=== PATIENT | female | born 1970 | race American Indian/Alaskan Native ===

== ENCOUNTER 2017-09-12 17:51 | Emergency (ER) | payer MEDICAID, OTHER ==
[2017-09-12] MEDS ORDERED: Cyclobenzaprine 10 MG Tab PO ONE (19:40)
== END 2017-09-12 19:48 ==
LOC: DL.ED 17:51
DX: Z53.21 Procedure and treatment not carried out due to patient leaving prior to being seen by health care provider (principal)

== ENCOUNTER 2017-09-13 16:04 | Emergency (ER) | payer MEDICAID, OTHER ==
--- NOTE | 2017-09-13 16:47 | EDM.PDOC ---
ED HPI GENERAL MEDICAL PROBLEM - General Chief Complaint: Upper Extremity Injury/Pain Stated Complaint: SEVERE SHOULDER PAIN, [id number] Time Seen by Provider: 09/13/17 16:47 Source of Information: Reports: Patient, RN, RN Notes Reviewed History Limitations: Reports: No Limitations - History of Present Illness INITIAL COMMENTS - FREE TEXT/NARRATIVE: C/O flare up of left shoulder pain since falling 2 days ago. Pt raised her arm to brush her hair after the fall and felt a tearing sensation. The pain radiates to the left shoulder blade and down the outer side of the left arm to the inferior deltoid region. Denies neck pain, numbness or tingling. 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 - Related Data Allergies Allergy/AdvReac Type Severity Reaction Status Date / Time ketorolac [From Toradol] Allergy Cannot Verified 09/12/17 19:31 Remember Penicillins Allergy Cannot Verified 09/12/17 19:31 Remember Home Meds: Home Meds ALPRAZolam [Xanax] 5 mg PO DAILY 09/12/17 [History] Lisinopril [Prinivil] 10 mg PO DAILY 09/12/17 [History] Mirtazapine 30 mg PO DAILY 09/12/17 [History] Prazosin HCl [Prazosin] 5 mg PO DAILY 09/12/17 [History] Past Medical History Musculoskeletal History: Reports: Other (See Below) (left rotator cuff injury/ tear) - Past Surgical History Musculoskeletal Surgical History: Reports: Shoulder Surgery Social & Family History - Family History Family Medical History: Noncontributory - Tobacco Use Smoking Status *Q: Never Smoker Second Hand Smoke Exposure: No - Caffeine Use Caffeine Use: Reports: None - Recreational Drug Use Recreational Drug Use: No - Living Situation & Occupation Living situation: Reports: with Family Review of Systems - Review of Systems Review Of Systems: ROS reveals no pertinent complaints other than HPI. ED EXAM, GENERAL - Physical Exam Exam: See Below Exam Limited By: No Limitations General Appearance: Alert, WD/WN, No Apparent Distress Head: Atraumatic, Normocephalic Neck: Normal Inspection, Supple, Non-Tender, Full Range of Motion Respiratory/Chest: No Respiratory Distress, Lungs Clear, Normal Breath Sounds, No Accessory Muscle Use, Chest Non-Tender Cardiovascular: Normal Peripheral Pulses Back Exam: Normal Inspection Extremities: Normal Capillary Refill, Arm Pain (at left generalized shoulder), Limited Range of Motion (left shoulder). No: Joint Swelling, Increased Warmth, Redness Neurological: Alert, Oriented, No Motor/Sensory Deficits Psychiatric: Normal Affect, Normal Mood Skin Exam: Warm, Dry, Intact, Normal Color, No Rash Course - Vital Signs Last Recorded V/S: Last Vital Signs Temp 36.9 C 09/13/17 16:38 Pulse 85 09/13/17 16:38 Resp 16 09/13/17 16:38 BP 143/76 H 09/13/17 16:38 Pulse Ox 100 09/13/17 16:38 - Orders/Labs/Meds Orders: Active Orders 24 hr Category Date Time Status Shoulder Comp Lt [CR] Urgent Exams 09/13/17 16:46 Taken Acetaminophen/HYDROcodone [[place] 325-10 MG] Med 09/13/17 17:17 Once 1 tab PO ONETIME ONE Medication Orders Hydrocodone Bitart/Acetaminophen ([place] 325-10 Mg) 1 tab PO ONETIME ONE Stop: 09/13/17 17:18 Meds: Medications Generic Name Dose Route Start Last Admin Trade Name Freq PRN Reason Stop Dose Admin Hydrocodone Bitart/Acetaminophen 1 tab 09/13/17 17:17 [place] 325-10 Mg PO 09/13/17 17:18 ONETIME ONE - Radiology Interpretation Free Text/Narrative:: Xray left shoulder: no fx or dislocation, calcific tendonosis; per Rad. report. Departure - Departure Time of Disposition: 17:25 Disposition: Home, Self-Care 01 Condition: Good Clinical Impression: Calcific tendonitis of left shoulder Injury of left rotator cuff Qualifiers: Encounter type: initial encounter Qualified Code(s): S46.002A - Unspecified injury of muscle(s) and tendon(s) of the rotator cuff of left shoulder, initial encounter - Discharge Information Instructions: Rotator Cuff Injury, Rotator Cuff Tendinitis Forms: ED Department Discharge Additional Instructions: Rest and apply ice packs to left shoulder as needed to reduce pain and inflammation. Light activity as tolerated. No overhead reaching or repetitive movement of the left shoulder. Rx: [place] 5mg/325mg *Do not drive while under the influence of this medication. Follow up in clinic next week for recheck. - My Orders Last 24 Hours: My Active Orders 09/13/17 16:46 Shoulder Comp Lt [CR] Urgent 09/13/17 17:17 Acetaminophen/HYDROcodone [[place] 325-10 MG] 1 tab PO ONETIME ONE - Assessment/Plan Last 24 Hours: My Active Orders 09/13/17 16:46 Shoulder Comp Lt [CR] Urgent 09/13/17 17:17 Acetaminophen/HYDROcodone [[place] 325-10 MG] 1 tab PO ONETIME ONE
[2017-09-13] MEDS ORDERED: Acetaminophen/HYDROcodone 325-10 MG Tab PO ONE (17:17)
== END 2017-09-13 17:40 | disposition home or self-care (01) ==
LOC: DL.ED 16:04
DX: S46.002A Unspecified injury of muscle(s) and tendon(s) of the rotator cuff of left shoulder, initial encounter (principal); M75.32 Calcific tendinitis of left shoulder; Z88.6 Allergy status to analgesic agent; Z88.0 Allergy status to penicillin; Z79.899 Other long term (current) drug therapy; W19.XXXA Unspecified fall, initial encounter
CPT/HCPCS: 73030; 99283; A9270

== ENCOUNTER 2018-01-28 16:21 | Emergency (ER) | payer MEDICAID, OTHER ==
[2018-01-28] MEDS ORDERED: Ketorolac 30 MG/ML SDV IM ONE (18:39)
--- NOTE | 2018-01-28 18:39 | EDM.PDOC ---
ED HPI GENERAL MEDICAL PROBLEM - General Chief Complaint: Upper Extremity Injury/Pain Stated Complaint: fell on shoulder 01/28/18 Time Seen by Provider: 01/28/18 17:30 Source of Information: Reports: Patient, RN, RN Notes Reviewed History Limitations: Reports: No Limitations - History of Present Illness INITIAL COMMENTS - FREE TEXT/NARRATIVE: Patient presents to the ER with c/o left shoulder pain. Patient states she has a history of problems with this shoulder having had surgery on it in the past and needing further surgeries. Patient states today she was hiking with her children when she stumbled and fell injuring the left shoulder again. Patient rates the pain 10/10. She denies numbness and tingling in the left hand and states she is able to make a fist with the left hand, but left arm has decreased ROM. Onset: Today, Sudden Duration: Constant Location: Reports: Upper Extremity, Left Quality: Reports: Ache, Throbbing Severity: Moderate Improves with: Reports: None Worsens with: Reports: None Treatments ORE SAMPLER: Reports: Cold Therapy Left Shoulder Pain Score (Numeric/FACES): 8 - Related Data Allergies Allergy/AdvReac Type Severity Reaction Status Date / Time ketorolac [From Toradol] Allergy Cannot Verified 01/28/18 16:36 Remember Penicillins Allergy Cannot Verified 01/28/18 16:36 Remember Home Meds: Home Meds ALPRAZolam [Xanax] 5 mg PO DAILY 09/12/17 [History] Lisinopril [Prinivil] 10 mg PO DAILY 09/12/17 [History] Mirtazapine 30 mg PO DAILY 09/12/17 [History] Prazosin HCl [Prazosin] 5 mg PO DAILY 09/12/17 [History] Past Medical History HEENT History: Reports: Impaired Vision Cardiovascular History: Reports: Hypertension Respiratory History: Reports: Other (See Below) Other Respiratory History: pleursy in 2013 Genitourinary History: Reports: None 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 Musculoskeletal History: Reports: Other (See Below) Other Musculoskeletal History: chronic left shoulder pain Neurological History: Reports: Other (See Below) Other Neuro History: hx traumatic brain injury Psychiatric History: Reports: Anxiety, Depression, PTSD Endocrine/Metabolic History: Reports: None Hematologic History: Reports: None Immunologic History: Reports: None Oncologic (Cancer) History: Reports: None Dermatologic History: Reports: None - Infectious Disease History Infectious Disease History: Reports: None - Past Surgical History Head Surgeries/Procedures: Reports: None GI Surgical History: Reports: Other (See Below) Other GI Surgeries/Procedures: spleen, gallbladder removed Musculoskeletal Surgical History: Reports: Knee Replacement, Shoulder Surgery Social & Family History - Family History Family Medical History: Noncontributory - Tobacco Use Smoking Status *Q: Current Every Day Smoker Years of Tobacco use: 10 Packs/Tins Daily: 0.2 - Caffeine Use Caffeine Use: Reports: Coffee, Soda, Tea - Recreational Drug Use Recreational Drug Use: Yes Drug Use in Last 12 Months: Yes Recreational Drug Type: Reports: Marijuana/Hashish - Living Situation & Occupation Living situation: Reports: with Family Review of Systems - Review of Systems Review Of Systems: ROS reveals no pertinent complaints other than HPI. ED EXAM, GENERAL - Physical Exam Exam: See Below Exam Limited By: No Limitations General Appearance: Alert, WD/WN, No Apparent Distress Eye Exam: Bilateral Eye: EOMI, Normal Inspection Ears: Normal External Exam, Hearing Grossly Normal Nose: Normal Inspection Throat/Mouth: Normal Inspection, Normal Voice, No Airway Compromise Head: Atraumatic, Normocephalic Neck: Normal Inspection, Supple, Non-Tender, Full Range of Motion Respiratory/Chest: No Respiratory Distress, Lungs Clear, Normal Breath Sounds, No Accessory Muscle Use, Chest Non-Tender Cardiovascular: Normal Peripheral Pulses, Regular Rate, Rhythm, No Edema, No Gallop, No JVD, No Murmur, No Rub Peripheral Pulses: 2+: Radial (L), Radial (R) GI/Abdominal: Normal Bowel Sounds, Soft, Non-Tender (Female) Exam: Deferred Rectal (Female) Exam: Deferred Back Exam: Normal Inspection, Full Range of Motion, NT Extremities: Normal Inspection, Limited Range of Motion (left shoulder) Neurological: Alert, Oriented, CN II-XII Intact, Normal Cognition, Normal Gait, Normal Reflexes, No Motor/Sensory Deficits Psychiatric: Normal Affect, Normal Mood Skin Exam: Warm, Dry, Intact, Normal Color, No Rash Lymphatic: No Adenopathy Course - Vital Signs Last Recorded V/S: Last Vital Signs Temp 97.6 F 01/28/18 16:26 Pulse 129 H 01/28/18 16:26 Resp 18 01/28/18 16:26 BP 131/85 01/28/18 16:26 Pulse Ox 100 01/28/18 16:26 - Orders/Labs/Meds Meds: Medications Discontinued Medications Generic Name Dose Route Start Last Admin Trade Name Daniel PRN Reason Stop Dose Admin Hydrocodone Bitart/Acetaminophen 1 tab 01/28/18 18:46 01/28/18 18:50 [place] 325-5 Mg PO 01/28/18 18:47 1 tab ONETIME ONE Administration Ketorolac Tromethamine 60 mg 01/28/18 18:39 01/28/18 18:50 Toradol IM 01/28/18 18:40 Not Given ONETIME ONE - Radiology Interpretation Free Text/Narrative:: Left shoulder complete: No acute findings See rad report Departure - Departure Time of Disposition: 18:38 Disposition: Home, Self-Care 01 Condition: Fair Clinical Impression: Sprain of shoulder Qualifiers: Encounter type: initial encounter Shoulder sprain type: unspecified sprain Laterality: left Qualified Code(s): S43.402A - Unspecified sprain of left shoulder joint, initial encounter - Discharge Information Instructions: Shoulder Pain, [id number] Forms: ED Department Discharge Additional Instructions: May use Tylenol and/or ibuprofen for pain Follow up with your primary care facility
[2018-01-28] MEDS ORDERED: Acetaminophen/HYDROcodone 325-5 MG Tab PO ONE (18:46)
== END 2018-01-28 18:53 | disposition home or self-care (01) ==
LOC: DL.ED 16:21
DX: S43.402A Unspecified sprain of left shoulder joint, initial encounter (principal); I10 Essential (primary) hypertension; F17.210 Nicotine dependence, cigarettes, uncomplicated; Z88.6 Allergy status to analgesic agent; Z88.0 Allergy status to penicillin; Z79.899 Other long term (current) drug therapy; X58.XXXA Exposure to other specified factors, initial encounter
CPT/HCPCS: 73030; 99283; A9270

== ENCOUNTER 2018-03-26 15:19 | Emergency (ER) | payer MEDICAID ==
--- NOTE | 2018-03-26 15:31 | EDM.PDOC ---
ED HPI GENERAL MEDICAL PROBLEM - General Chief Complaint: Upper Extremity Injury/Pain Stated Complaint: [id number] TEAR IN LEFT SHOULDER Time Seen by Provider: 03/26/18 15:25 Source of Information: Reports: Patient, Old Records, RN, RN Notes Reviewed History Limitations: Reports: No Limitations - History of Present Illness INITIAL COMMENTS - FREE TEXT/NARRATIVE: Pt presents to ER from home with c/o chronic left shoulder pain with Hx of rotator cuff tear which she states "needs surgery" but she had moved and can't get into an orthopedic surgeon for several weeks. Pt had been taking hydrocodone for pain, but recently ran out. She denies any new or recent injury. Pt states the pain has been getting worse for no apparent reason, so she came to the emergency department. 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(s) Left Shoulder Pain Score (Numeric/FACES): 9 - Related Data Allergies Allergy/AdvReac Type Severity Reaction Status Date / Time ketorolac [From Toradol] Allergy Cannot Verified 03/26/18 15:26 Remember Penicillins Allergy Cannot Verified 03/26/18 15:26 Remember Home Meds: Home Meds Lisinopril [Prinivil] 10 mg PO DAILY 09/12/17 [History] Mirtazapine 30 mg PO DAILY 09/12/17 [History] Prazosin HCl [Prazosin] 5 mg PO DAILY 09/12/17 [History] Cholecalciferol (Vitamin D3) [Vitamin D3] 1,000 unit PO DAILY 03/26/18 [History] Multivitamin [Multivitamins] 1 cap PO DAILY 03/26/18 [History] Past Medical History HEENT History: Reports: Impaired Vision Cardiovascular History: Reports: Hypertension Respiratory History: Reports: Other (See Below) Other Respiratory History: pleursy in 2013 Genitourinary History: Reports: None 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 Musculoskeletal History: Reports: Other (See Below) Other Musculoskeletal History: chronic left shoulder pain Neurological History: Reports: Other (See Below) Other Neuro History: hx traumatic brain injury Psychiatric History: Reports: Anxiety, Depression, PTSD Endocrine/Metabolic History: Reports: Obesity/BMI 30+ Hematologic History: Reports: None Immunologic History: Reports: None Oncologic (Cancer) History: Reports: None Dermatologic History: Reports: None - Infectious Disease History Infectious Disease History: Reports: None - Past Surgical History Head Surgeries/Procedures: Reports: None GI Surgical History: Reports: Other (See Below) Other GI Surgeries/Procedures: spleen, gallbladder removed Musculoskeletal Surgical History: Reports: Knee Replacement, Shoulder Surgery Social & Family History - Family History Family Medical History: Noncontributory - Caffeine Use Caffeine Use: Reports: Coffee, Soda, Tea - Living Situation & Occupation Living situation: Reports: with Family Review of Systems - Review of Systems Review Of Systems: ROS reveals no pertinent complaints other than HPI. ED EXAM, GENERAL - Physical Exam Exam: See Below Exam Limited By: No Limitations General Appearance: Alert, WD/WN, No Apparent Distress Head: Atraumatic, Normocephalic Neck: Normal Inspection, Supple, Non-Tender, Full Range of Motion Respiratory/Chest: No Respiratory Distress Peripheral Pulses: 3+: Radial (L), Radial (R) Extremities: Arm Pain (left shoulder with gen. tenderness, no visible bruising, swelling, or deformity), Limited Range of Motion (left shoulder due to pain). No: Joint Swelling, Increased Warmth, Pallor, Redness Neurological: Alert, Oriented, No Motor/Sensory Deficits Psychiatric: Normal Affect, Normal Mood Skin Exam: Warm, Dry, Intact, Normal Color, No Rash Course - Vital Signs Last Recorded V/S: Last Vital Signs Temp 37.2 C 03/26/18 15:41 Pulse 108 H 03/26/18 15:41 Resp 18 03/26/18 15:41 BP 139/78 03/26/18 15:41 Pulse Ox 99 03/26/18 15:41 - Orders/Labs/Meds Orders: Active Orders 24 hr Category Date Time Status Acetaminophen/HYDROcodone [[place] 325-10 MG] Med 03/26/18 15:43 Once 1 tab PO ONETIME ONE - Re-Assessments/Exams Free Text/Narrative Re-Assessment/Exam: 03/26/18 15:44 Pt presents with a chronic and stable left shoulder problem, and a pending orthopedic appt. I see no indication for imaging or further evaluation at this time. I declined her request for hydrocodone refill. Departure - Departure Time of Disposition: 15:45 Disposition: Home, Self-Care 01 Condition: Good Clinical Impression: Chronic left shoulder pain - Discharge Information Instructions: Shoulder Pain Forms: ED Department Discharge Additional Instructions: Rx: Cyclobenzaprine 10mg *Do not drive while under the influence of this medication. Follow up in clinic with your primary care for medication management. Follow up with orthopedic surgeon at the first available appointment. - My Orders Last 24 Hours: My Active Orders 03/26/18 15:43 Acetaminophen/HYDROcodone [[place] 325-10 MG] 1 tab PO ONETIME ONE - Assessment/Plan Last 24 Hours: My Active Orders 03/26/18 15:43 Acetaminophen/HYDROcodone [[place] 325-10 MG] 1 tab PO ONETIME ONE
[2018-03-26] MEDS ORDERED: Acetaminophen/HYDROcodone 325-10 MG Tab PO ONE (15:43)
== END 2018-03-26 15:55 | disposition home or self-care (01) ==
LOC: DL.ED 15:19
DX: G89.29 Other chronic pain (principal); M25.512 Pain in left shoulder; I10 Essential (primary) hypertension; F41.9 Anxiety disorder, unspecified; F32.9 Major depressive disorder, single episode, unspecified; Z79.899 Other long term (current) drug therapy; Z88.0 Allergy status to penicillin; Z88.5 Allergy status to narcotic agent; Z98.890 Other specified postprocedural states
CPT/HCPCS: 99282; A9270

== ENCOUNTER 2018-05-13 05:37 | Emergency (ER) | payer MEDICAID ==
[2018-05-13] MEDS ORDERED: Albuterol/Ipratropium 3.0-0.5 MG/3 ML Neb Soln NEB ONE (05:43)
[2018-05-13] MEDS ORDERED: Budesonide 0.5 MG/2 ML Neb Susp NEB ONE (05:43)
[2018-05-13] MEDS ORDERED: methylPREDNISolone Sodium Succinate 125 MG/2 ML SDV IVPUSH ONE (05:43)
[2018-05-13] MEDS ORDERED: Sodium Chloride 0.9% 10 ML Syringe FLUSH PRN (05:43)
[2018-05-13] MEDS ORDERED: Montelukast 10 MG Tab PO ONE (05:44)
[2018-05-13] MEDS ORDERED: Budesonide 0.5 MG/2 ML Neb Susp ONE (05:55)
--- NOTE | 2018-05-13 05:55 | EDM.PDOC ---
ED HPI GENERAL MEDICAL PROBLEM - General Chief Complaint: Respiratory Problem Stated Complaint: IN BY AMBULANCE Time Seen by Provider: 05/13/18 05:40 Source of Information: Reports: Patient, EMS History Limitations: Reports: No Limitations - History of Present Illness INITIAL COMMENTS - FREE TEXT/NARRATIVE: Patient comes emergency department today with complaints of a cough and wheezing. Over the past week she has had increasing cough and congestion. She complains of a fever of 101 at home as well as chills. Her cough is dry hacking in nature. She does have a history of asthma for which she has been using her inhalers without much improvement. She does complain of shortness of breath a hoarse voice as well as tightness in her chest. Sometimes she starts coughing so much that she vomits. She denies any nausea. No abdominal pain. No hematuria dysuria or urinary frequency.She was to be seen in the clinic this morning although she didn't feel that she could make it with her coughing. Chest Pain Score (Numeric/FACES): 9 - Related Data Allergies Allergy/AdvReac Type Severity Reaction Status Date / Time ketorolac [From Toradol] Allergy Cannot Verified 05/13/18 05:46 Remember Penicillins Allergy Cannot Verified 05/13/18 05:46 Remember Home Meds: Home Meds Lisinopril [Prinivil] 10 mg PO DAILY 09/12/17 [History] Mirtazapine 30 mg PO DAILY 09/12/17 [History] Prazosin HCl [Prazosin] 5 mg PO DAILY 09/12/17 [History] Cholecalciferol (Vitamin D3) [Vitamin D3] 1,000 unit PO DAILY 03/26/18 [History] Multivitamin [Multivitamins] 1 cap PO DAILY 03/26/18 [History] Albuterol [Ventolin HFA] 2 puff INH Q4HRRT PRN 05/13/18 [History] Gabapentin [Neurontin] 100 mg PO TID 05/13/18 [History] Past Medical History HEENT History: Reports: Impaired Vision Cardiovascular History: Reports: Hypertension Respiratory History: Reports: Asthma, Other (See Below) Other Respiratory History: pleursy in 2013 Genitourinary History: Reports: None 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 Musculoskeletal History: Reports: Other (See Below) Other Musculoskeletal History: chronic left shoulder pain Neurological History: Reports: Other (See Below) Other Neuro History: hx traumatic brain injury Psychiatric History: Reports: Anxiety, Depression, PTSD Endocrine/Metabolic History: Reports: Obesity/BMI 30+ Hematologic History: Reports: None Immunologic History: Reports: None Oncologic (Cancer) History: Reports: None Dermatologic History: Reports: None - Infectious Disease History Infectious Disease History: Reports: None - Past Surgical History Head Surgeries/Procedures: Reports: None GI Surgical History: Reports: Other (See Below) Other GI Surgeries/Procedures: spleen, gallbladder removed Musculoskeletal Surgical History: Reports: Knee Replacement, Shoulder Surgery Social & Family History - Family History Family Medical History: Noncontributory - Caffeine Use Caffeine Use: Reports: Soda - Living Situation & Occupation Living situation: Reports: with Family ED ROS GENERAL - Review of Systems Review Of Systems: ROS reveals no pertinent complaints other than HPI. ED EXAM, GENERAL - Physical Exam Exam: See Below Free Text/Narrative:: Horse quite voice with a very regular persistent cough that is minimally audibly wheezy. Exam Limited By: No Limitations General Appearance: Alert, WD/WN, Moderate Distress Eye Exam: Bilateral Eye: PERRL Ears: Normal External Exam, Normal Canal Nose: Normal Inspection, Normal Mucosa Throat/Mouth: Normal Inspection, Normal Lips, Normal Oropharynx Head: Atraumatic, Normocephalic Neck: Normal Inspection, Supple Respiratory/Chest: Chest Non-Tender, Respiratory Distress, Decreased Breath Sounds, Rhonchi, Wheezing, Accessory Muscle Use. No: Stridor, Retractions Cardiovascular: Normal Peripheral Pulses, Regular Rate, Rhythm Peripheral Pulses: 2+: Radial (L), Radial (R), Posterior Tibial (L), Posterior Tibial (R), Dorsalis Pedis (L), Dorsalis Pedis (R) GI/Abdominal: Normal Bowel Sounds, Soft Back Exam: Normal Inspection Extremities: Normal Inspection, Normal Range of Motion, Normal Capillary Refill Neurological: Alert, Oriented, No Motor/Sensory Deficits Psychiatric: Normal Affect, Normal Mood Skin Exam: Warm, Dry, Intact, Normal Color, No Rash EKG INTERPRETATION EKG Date: 05/13/18 Rhythm: NSR Rate (Beats/Min): 98 [place]: Normal P-Wave: Present QRS: Normal ST-T: Normal QT: Normal Comparison: No Change Course - Vital Signs Last Recorded V/S: Last Vital Signs Temp 37.2 C 05/13/18 05:37 Pulse 105 H 05/13/18 05:37 Resp 20 05/13/18 05:37 BP 132/95 H 05/13/18 05:37 Pulse Ox 100 05/13/18 05:37 - Orders/Labs/Meds Orders: Active Orders 24 hr Category Date Time Status EKG 12 Lead [EKG Documentation Completion] [RC] URGENT Care 05/13/18 05:44 Active Peripheral IV Care [RC] . DIRECTED Care 05/13/18 05:43 Active RT Aerosol Therapy [RC] ASDIRECTED Care 05/13/18 05:43 Active RT Aerosol Therapy [RC] ASDIRECTED Care 05/13/18 06:49 Ordered Chest 2V [CR] Urgent Exams 05/13/18 05:43 Taken Sodium Chloride 0.9% [Saline Flush] Med 05/13/18 05:43 Active 10 ml FLUSH ASDIRECTED PRN Peripheral IV Insertion Adult [OM.PC] Stat Oth 05/13/18 05:43 Ordered Medication Orders Sodium Chloride (Saline Flush) 10 ml FLUSH ASDIRECTED PRN PRN Reason: Keep Vein Open Last Admin: 05/13/18 06:06 Dose: 10 ml Labs: Laboratory Tests 05/13/18 05/13/18 05/13/18 Range/Units 06:07 06:07 06:07 WBC 19.3 H (5.0-10.0) 10^3/uL RBC 4.74 (4.2-5.4) 10^6/uL Hgb 13.0 (12.0-16.0) g/dL Hct 38.4 (37.0-47.0) % MCV 81.0 (80-100) fL MCH 27.4 (27.0-34.0) pg MCHC 33.9 (33.0-35.0) g/dL Plt Count 593 H (150-450) 10^3/uL Neut % (Auto) 73.4 (42.2-75.2) % Lymph % (Auto) 16.2 L (20.5-50.1) % [place] % (Auto) 7.9 (2-8) % Eos % (Auto) 2.2 (1.0-3.0) % Baso % (Auto) 0.3 (0.0-1.0) % Sodium 135 (135-145) mmol/L Potassium 3.6 (3.6-5.0) mmol/L Chloride 103 (101-111) mmol/L Carbon Dioxide 21.0 (21.0-31.0) mmol/L Anion Gap 14.6 BUN 12 (7-18) mg/dL Creatinine 0.7 (0.6-1.3) mg/dL Est Cr Clr Drug Dosing 87.64 mL/min Estimated GFR (MDRD) > 60 BUN/Creatinine Ratio 17.14 Glucose 100 (74-105) mg/dL Calcium 8.8 (8.4-10.2) mg/dl Total Bilirubin 1.2 H (0.2-1.0) mg/dL AST 29 (10-42) IU/L ALT 23 (10-60) IU/L Alkaline Phosphatase 78 (42-121) IU/L Troponin I < 0.02 (0.00-0.02) ng/ml C-Reactive Protein 7.2 H (0.0-1.3) mg/dL Total Protein 7.8 (6.7-8.2) g/dl Albumin 4.1 (3.2-5.5) g/dl Globulin 3.7 Albumin/Globulin Ratio 1.11 Meds: Medications Generic Name Dose Route Start Last Admin Trade Name Freq PRN Reason Stop Dose Admin Sodium Chloride 10 ml 05/13/18 05:43 05/13/18 06:06 Saline Flush FLUSH 10 ml ASDIRECTED PRN Administration Keep Vein Open Discontinued Medications Generic Name Dose Route Start Last Admin Trade Name Freq PRN Reason Stop Dose Admin Albuterol 2.5 mg 05/13/18 06:49 05/13/18 06:57 Proventil Neb Soln [facility] 05/13/18 06:50 2.5 mg ONETIME ONE Administration Albuterol/Ipratropium 3 ml 05/13/18 05:43 05/13/18 06:04 Duoneb 3.0-0.5 Mg/3 Ml NEB 05/13/18 05:44 3 ml ONETIME ONE Administration Budesonide 1 mg 05/13/18 05:43 05/13/18 05:53 Pulmicort NEB 05/13/18 05:44 1 mg ONETIME ONE Administration Budesonide Confirm 05/13/18 05:55 05/13/18 06:07 Pulmicort Administered 05/13/18 05:56 Not Given Dose 0.5 mg .ROUTE .STK-MED ONE Doxycycline Hyclate 100 mg 05/13/18 06:46 05/13/18 06:56 Vibramycin PO 05/13/18 06:47 100 mg ONETIME ONE Administration Methylprednisolone Sodium Succinate 125 mg 05/13/18 05:43 05/13/18 06:07 Solu-Medrol IVPUSH 05/13/18 05:44 125 mg ONETIME ONE Administration Montelukast Sodium 10 mg 05/13/18 05:44 05/13/18 06:06 Singulair PO 05/13/18 05:45 10 mg ONETIME ONE Administration - Radiology Interpretation Free Text/Narrative:: Chest xray per radiology. Probable bilateral bronchitis and right lower lobe pneumonitis or atelectasis. Departure - Departure Time of Disposition: 07:00 Disposition: Home, Self-Care 01 Clinical Impression: Exacerbation of asthma Qualifiers: Asthma severity: moderate Asthma persistence: unspecified Qualified Code(s): J45.901 - Unspecified asthma with (acute) exacerbation Pneumonia Qualifiers: Pneumonia type: due to unspecified organism Laterality: unspecified laterality Lung location: unspecified part of lung Qualified Code(s): J18.9 - Pneumonia, unspecified organism - Discharge Information Instructions: Asthma, Adult, [id number], Community-Acquired Pneumonia, Adult , [id number] Forms: ED Department Discharge Additional Instructions: Prednisone 60mg a day for the next 5 days. RX given to the patient. Doxycycline 1 tablet twice daily for 7 days. RX given to the patient. Continue home inhalers. Nebulizer compact RX given, Albuterol nebulizer use every 4 hrs as needed for acute symptoms of SOB cough and wheezing. Use prior to your MDI steroid inhaler. Tessalon PEarls. 1 tab three times a day as needed for cough and wheezing. Return to the ED if new or worsening symptoms. Follow up with primary care provider in the next 4-6days if not improving sooner if worse. - My Orders Last 24 Hours: My Active Orders 05/13/18 05:43 Peripheral IV Care [RC] . DIRECTED RT Aerosol Therapy [RC] ASDIRECTED Chest 2V [CR] Urgent Sodium Chloride 0.9% [Saline Flush] 10 ml FLUSH ASDIRECTED PRN Peripheral IV Insertion Adult [OM.PC] Stat 05/13/18 05:44 EKG 12 Lead [EKG Documentation Completion] [RC] URGENT 05/13/18 06:49 RT Aerosol Therapy [RC] ASDIRECTED - Assessment/Plan Last 24 Hours: My Active Orders 05/13/18 05:43 Peripheral IV Care [RC] . DIRECTED RT Aerosol Therapy [RC] ASDIRECTED Chest 2V [CR] Urgent Sodium Chloride 0.9% [Saline Flush] 10 ml FLUSH ASDIRECTED PRN Peripheral IV Insertion Adult [OM.PC] Stat 05/13/18 05:44 EKG 12 Lead [EKG Documentation Completion] [RC] URGENT 05/13/18 06:49 RT Aerosol Therapy [RC] ASDIRECTED Assessment:: Acute asthma exacerbation pneumonia Plan: Prednisone 60mg a day for the next 5 days. RX given to the patient. Doxycycline 1 tablet twice daily for 7 days. RX given to the patient. Continue home inhalers. Nebulizer compact RX given, Albuterol nebulizer use every 4 hrs as needed for acute symptoms of SOB cough and wheezing. Use prior to your MDI steroid inhaler. Return to the ED if new or worsening symptoms. Follow up with primary care provider in the next 4-6days if not improving sooner if worse.
[2018-05-13 06:36] LABS: SODIUM,NA 135 mmol/L (135-145)
[2018-05-13 06:37] LABS: ANION GAP 14.6; CHLORIDE,CL 103 mmol/L (101-111)
[2018-05-13] MEDS ORDERED: Doxycycline 100 MG Cap PO ONE (06:46)
[2018-05-13] MEDS ORDERED: Albuterol 0.083% 2.5 MG/3 ML Neb Soln NEB ONE (06:49)
--- NOTE | 2018-05-13 17:55 | EKG ---
05/13/2018 - SOLIS GHOTRA - FINDINGS: EKG shows sinus tachycardia, rate of 103 per minute. Nonspecific T- wave abnormality. [facility] /[id number]
== END 2018-05-13 07:13 | disposition home or self-care (01) ==
LOC: DL.ED 05:37
DX: J45.901 Unspecified asthma with (acute) exacerbation (principal); J18.9 Pneumonia, unspecified organism; E66.9 Obesity, unspecified; I10 Essential (primary) hypertension; Z79.899 Other long term (current) drug therapy; Z88.0 Allergy status to penicillin; Z88.1 Allergy status to other antibiotic agents
CPT/HCPCS: 36415; 71046; 80053; 84484; 85025; 86140; 93005; 94640; 96374; 99285; A9270; J2930; J7050; J7620

== ENCOUNTER 2018-05-13 09:53 | Inpatient (IN) | payer MEDICAID ==
--- NOTE | 2018-05-13 12:26 | PCM.HP ---
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 The patient presented to the emergency room with complaint of cough which has been going on for the past 5 days. It has worsened over time. It is productive of thick greenish sputum. Patient was seen in the emergency room and sent home with oral antibiotics. On getting back home she continued to have fever with temperature up to 102. She also was having associated shortness of breath and sore throat. She did have one bout of diarrhea. Stool was watery and nonbloody. She will back to the clinic and was seen by her primary care provider referred her to the hospital for admission. Patient has had previous pneumonias that were considered very severe. - Related Data Allergies/Adverse Reactions: Allergies Allergy/AdvReac Type Severity Reaction Status Date / Time ketorolac [From Toradol] Allergy Cannot Verified 05/13/18 05:46 Remember Penicillins Allergy Cannot Verified 05/13/18 05:46 Remember Home Medications: Home Meds Lisinopril [Prinivil] 10 mg PO DAILY 09/12/17 [History] Mirtazapine 30 mg PO BEDTIME 09/12/17 [History] Prazosin HCl [Prazosin] 5 mg PO BEDTIME 09/12/17 [History] Cholecalciferol (Vitamin D3) [Vitamin D3] 1,000 unit PO DAILY 03/26/18 [History] Multivitamin [Multivitamins] 1 cap PO DAILY 03/26/18 [History] Albuterol [Ventolin HFA] 2 puff INH Q4HRRT PRN 05/13/18 [History] Aspirin [Lilia Chewable Aspirin] 81 mg PO DAILY 05/13/18 [History] Gabapentin [Neurontin] 300 mg PO TID 05/13/18 [History] Omeprazole 20 mg PO DAILY 05/13/18 [History] Pravastatin [Pravachol] 40 mg PO DAILY 05/13/18 [History] metFORMIN HCl [Metformin HCl] 500 mg PO BID 05/13/18 [History] Past Medical History HEENT History: Reports: Cataract, Impaired Vision, Other (See Below) Other HEENT History: bilateral cataracts Cardiovascular History: Reports: Hypertension, Other (See Below) Other Cardiovascular History: two mild heart attacks in the past Respiratory History: Reports: Asthma, Pneumonia, Recurrent, Other (See Below) Other Respiratory History: pleursy in 2013, 2016 Genitourinary History: Reports: UTI, Recurrent 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 Musculoskeletal History: Reports: Other (See Below) Other Musculoskeletal History: chronic left shoulder pain, torn rotator cuff Neurological History: Reports: Other (See Below) Other Neuro History: hx traumatic brain injury Psychiatric History: Reports: Anxiety, Depression, PTSD Endocrine/Metabolic History: Reports: Diabetes, Type I, Obesity/BMI 30+, Other ( See Below) Other Endocrine/Metabolic History: metformin started Hematologic History: Reports: Other (See Below) Other Hematologic History: heradity spherocytosis Immunologic History: Reports: None Oncologic (Cancer) History: Reports: None Dermatologic History: Reports: None - Infectious Disease History Infectious Disease History: Reports: Chicken Pox, MRSA - Past Surgical History Head Surgeries/Procedures: Reports: None Respiratory Surgical History: Reports: None GI Surgical History: Reports: Other (See Below) Other GI Surgeries/Procedures: spleen, gallbladder removed Female Surgical History: Reports: Section Musculoskeletal Surgical History: Reports: Knee Replacement, Shoulder Surgery Other Musculoskeletal Surgeries/Procedures:: 2 right shoulder, 1 left should, 6 or 7 left knee Social & Family History - Family History Family Medical History: Noncontributory - Tobacco Use Smoking Status *Q: Former Smoker Used Tobacco, but Quit: Yes Month/Year Tobacco Last Used: 04/2018 - Caffeine Use Caffeine Use: Reports: Coffee - Recreational Drug Use Recreational Drug Use: No - Living Situation & Occupation Living situation: Reports: with Family H&P Review of Systems - Review of Systems: Review Of Systems: See Below General: Reports: Fever, Weakness HEENT: Reports: No Symptoms Pulmonary: Reports: Shortness of Breath, Cough Cardiovascular: Reports: Chest Pain Gastrointestinal: Reports: No Symptoms Genitourinary: Reports: No Symptoms Musculoskeletal: Reports: No Symptoms Skin: Reports: No Symptoms Hematologic/Lymphatic: Reports: No Symptoms Exam - Exam Exam: See Below - Vital Signs Vital Signs: Last Vital Signs Temp 36.2 C 08/22/18 10:04 Pulse 109 H 05/13/18 10:04 Resp 18 05/13/18 10:04 BP 125/75 05/13/18 10:04 Pulse Ox 98 05/13/18 12:12 Weight: 94.347 kg - Exam General: Alert, Oriented, Cooperative HEENT: PERRLA, Hearing Intact, Mucosa Moist & [place], Nares Patent, Normal Nasal Septum, Posterior Pharynx Clear, Conjunctiva Clear, EOMI, EACs Clear, TMs Clear Neck: Supple, Trachea Midline Lungs: Crackles Cardiovascular: Regular Rhythm, Tachycardia Extremities: Normal Inspection Psychiatric: Alert, Normal Affect Problem List Initiated/Reviewed/Updated: Yes Orders Last 24hrs: Active Orders 24 hr Category Date Time Status Patient Status [ADT] Routine ADT 05/13/18 12:12 Active Blood Glucose Check, Bedside [RC] TIDMEALS Care 05/13/18 12:12 Active Intake and Output [RC] QSHIFT Care 05/13/18 12:13 Active Oxygen Therapy [RC] PRN Care 05/13/18 12:12 Active RT Aerosol Therapy [RC] ASDIRECTED Care 05/13/18 12:15 Active Up ad Buffy [RC] ASDIRECTED Care 05/13/18 12:12 Active VTE/DVT Education [RC] PER UNIT ROUTINE Care 05/13/18 12:12 Active Vital Signs [RC] 00,04,08,12,16,20 Care 05/13/18 12:12 Active Consistent Carbohydrate Diet [DIET] Diet 05/13/18 Lunch Active BASIC METABOLIC PANEL,BMP [CHEM] AM Lab 05/14/18 05:11 Ordered CBC WITH AUTO DIFF [HEME] AM Lab 05/14/18 05:11 Ordered CULTURE BLOOD [BC] Stat Lab 05/13/18 12:16 Ordered CULTURE BLOOD [BC] Stat Lab 05/13/18 12:16 Ordered CULTURE SPUTUM + SMEAR [RM] Stat Lab 05/13/18 10:00 Ordered Albuterol [Proventil Neb Soln] Med 05/13/18 12:12 Ordered 2.5 mg NEB Q2H PRN Codeine/guaiFENesin [Robitussin AC] Med 05/13/18 12:17 Ordered 5 ml PO Q6H PRN Docusate Sodium [Colace] Med 05/13/18 12:12 Ordered 100 mg PO BID PRN Doxycycline [Vibramycin] 100 mg Med 05/13/18 21:00 Ordered Sodium Chloride 0.9% [Normal Saline] 100 ml IV Q12HR Enoxaparin [Lovenox] Med 05/14/18 09:00 Ordered 40 mg SUBCUT DAILY Ondansetron [Zofran] Med 05/13/18 12:12 Ordered 4 mg IVPUSH Q6H PRN Sodium Chloride 0.9% [Normal Saline] 1,000 ml Med 05/13/18 12:15 Ordered IV ASDIRECTED cefTRIAXone [Rocephin] Med 05/13/18 12:15 Ordered 1 gm IVPUSH Q24H Blood Culture x2 Reflex Set [OM.PC] Stat Oth 05/13/18 12:12 Ordered Resuscitation Status Routine Resus Stat 05/13/18 12:12 Ordered Medication Orders Albuterol (Proventil Neb Soln) 2.5 mg NEB Q2H PRN PRN Reason: shortness of breath/wheezing Ceftriaxone Sodium (Rocephin) 1 gm IVPUSH Q24H FRANKI Docusate Sodium (Colace) 100 mg PO BID PRN PRN Reason: Constipation Enoxaparin Sodium (Lovenox) 40 mg SUBCUT DAILY FRANKI Guaifenesin/Codeine Phosphate (Robitussin Ac) 5 ml PO Q6H PRN PRN Reason: Cough Doxycycline Hyclate 100 mg/ (Sodium Chloride) 100 mls @ 100 mls/hr IV Q12HR FRANKI Sodium Chloride (Normal Saline) 1,000 mls @ 125 mls/hr IV ASDIRECTED FRANKI Ondansetron HCl (Zofran) 4 mg IVPUSH Q6H PRN PRN Reason: Nausea/Vomiting Assessment/Plan Comment:: #. Sepsis The patient presented with fever temperature up to 102. She also has leukocytosis withwhite cell count of 19,000. She is tachycardic. This is likely due to community-acquired pneumonia #. Probable community-acquired pneumonia Patient has been coughing for the past 5 days. It is productive of thick greenish sputum. Chest x-ray showed hazy density of the right lower base likely pneumonia. #. 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 Tobacco use disorder Patient smokes about half a pack of cigarettes a day. Expresses intention to quit #. Diabetes mellitus the patient has been on oral hypoglycemic agent metformin #. Hypertension Patient is on oral lisinopril. Plan: Admit patient to medical floor Send sputum for Gram stain and cultures Obtain blood cultures 2 Check serum lactate Empiric antibiotics intravenous ceftriaxone Intravenous doxycycline Nebulizer with bronchodilators.
[2018-05-13] MEDS: Sodium Chloride 0.9% 1,000 ML IV SCH ×2 (12:38→22:03)
[2018-05-13] MEDS: Albuterol 0.083% 2.5 MG/3 ML Neb Soln NEB PRN ×2 (12:38→20:22)
[2018-05-13] MEDS: Codeine/guaiFENesin 100-10 MG/5 ML Syrup 5 ML Cup PO PRN ×2 (12:38→20:18)
[2018-05-13] MEDS: cefTRIAXone 1 GM Vial IVPUSH SCH (12:38)
[2018-05-13] MEDS ORDERED: Sodium Chloride 0.9% 10 ML Syringe FLUSH PRN (14:27)
[2018-05-13] MEDS ORDERED: Acetaminophen 325 MG Tab PO PRN (15:37)
[2018-05-13] MEDS: Doxycycline 100 MG in Sodium Chloride 0.9% 100 ML IV SCH (20:19)
[2018-05-13] MEDS: Benzocaine/Cetylpyridinium/Menthol Lozenge MUCMEM PRN (20:30)
[2018-05-13] MEDS: Benzonatate 100 MG Cap PO PRN (20:31)
[2018-05-13] MEDS: Acetaminophen 325 MG Tab PO PRN (20:31)
[2018-05-14] MEDS: Albuterol 0.083% 2.5 MG/3 ML Neb Soln NEB PRN ×3 (01:59→09:25)
[2018-05-14] MEDS: Acetaminophen 325 MG Tab PO PRN ×3 (02:01→19:31)
[2018-05-14] MEDS: Benzocaine/Cetylpyridinium/Menthol Lozenge MUCMEM PRN ×4 (02:30→22:36)
[2018-05-14] MEDS: Codeine/guaiFENesin 100-10 MG/5 ML Syrup 5 ML Cup PO PRN ×4 (02:30→22:36)
[2018-05-14] MEDS: Sodium Chloride 0.9% 1,000 ML IV SCH ×2 (06:08→17:09)
[2018-05-14] MEDS: Benzonatate 100 MG Cap PO PRN (06:13)
[2018-05-14 06:53] LABS: ANION GAP 12.7; CHLORIDE,CL 108 mmol/L (101-111); SODIUM,NA 136 mmol/L (135-145)
[2018-05-14] MEDS: Enoxaparin 40 MG/0.4 ML Syringe SUBCUT SCH (09:14)
[2018-05-14] MEDS: Docusate Sodium 100 MG Cap PO PRN (09:26)
[2018-05-14] MEDS: Doxycycline 100 MG in Sodium Chloride 0.9% 100 ML IV SCH ×3 (10:01→21:10)
[2018-05-14] MEDS: Albuterol 0.083% 2.5 MG/3 ML Neb Soln NEB SCH ×4 (11:29→22:37)
[2018-05-14] MEDS: Insulin Aspart 100 Units/ML 3 ML Pen SUBCUT SCH ×3 (11:56→21:09)
[2018-05-14] MEDS: cefTRIAXone 1 GM Vial IVPUSH SCH (12:37)
[2018-05-14] MEDS: Benzonatate 100 MG Cap PO SCH ×2 (13:46→21:09)
[2018-05-14] MEDS: Omeprazole 20 MG Cap.CR PO SCH (14:24)
[2018-05-15] MEDS: Acetaminophen 325 MG Tab PO PRN ×4 (00:45→17:19)
[2018-05-15] MEDS: Sodium Chloride 0.9% 1,000 ML IV SCH (00:47)
[2018-05-15] MEDS ORDERED: Acetaminophen/oxyCODONE 325-5 MG Tab PO PRN (00:55)
[2018-05-15] MEDS ORDERED: oxyCODONE 5 MG Tab PO ONE (00:59)
[2018-05-15] MEDS ORDERED: oxyCODONE 5 MG Tab ONE (01:26)
[2018-05-15] MEDS: Albuterol 0.083% 2.5 MG/3 ML Neb Soln NEB SCH ×6 (02:51→22:40)
[2018-05-15] MEDS: Ondansetron 4 MG/2 ML SDV IVPUSH PRN ×2 (04:20→13:10)
[2018-05-15] MEDS: Codeine/guaiFENesin 100-10 MG/5 ML Syrup 5 ML Cup PO PRN ×3 (04:42→17:19)
[2018-05-15] MEDS: Benzocaine/Cetylpyridinium/Menthol Lozenge MUCMEM PRN ×2 (04:42→11:59)
[2018-05-15] MEDS: Omeprazole 20 MG Cap.CR PO SCH (05:15)
[2018-05-15 06:51] LABS: ANION GAP 9.9; CHLORIDE,CL 108 mmol/L (101-111); SODIUM,NA 137 mmol/L (135-145)
[2018-05-15] MEDS: Insulin Aspart 100 Units/ML 3 ML Pen SUBCUT SCH ×4 (08:08→21:09)
[2018-05-15] MEDS: Doxycycline 100 MG in Sodium Chloride 0.9% 100 ML IV SCH (08:24)
[2018-05-15] MEDS: oxyCODONE 5 MG Tab PO PRN ×3 (08:26→22:41)
[2018-05-15] MEDS: Benzonatate 100 MG Cap PO SCH ×4 (08:27→21:24)
[2018-05-15] MEDS: Enoxaparin 40 MG/0.4 ML Syringe SUBCUT SCH (08:36)
[2018-05-15] MEDS ORDERED: Docusate Sodium 100 MG Cap PO PRN (09:54)
--- NOTE | 2018-05-15 11:49 | PCM.PN ---
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 The patient presented to the emergency room with complaint of cough which has been going on for the past 5 days. It has worsened over time. It is productive of thick greenish sputum. Patient was seen in the emergency room and sent home with oral antibiotics. On getting back home she continued to have fever with temperature up to 102. She also was having associated shortness of breath and sore throat. Patient has had previous pneumonias that were considered very severe. CXR showed hazy density of the right lower base likely pneumonia. She was admitted for pneumonia. Seen on rounds this morning. Still coughing. Overall she is improving clinically. SOB has improved and she remain afebrile. She is concern about the persistent cough. increse her Tessalon and Robutossin dosage. I also switch her abx to Levaquin. wbc trending down, 17K today. Functional Status: Reports: Pain Controlled - Review of Systems General: Reports: No Symptoms HEENT: Reports: No Symptoms Pulmonary: Reports: Cough, Sputum Cardiovascular: Reports: No Symptoms Gastrointestinal: Reports: No Symptoms Genitourinary: Reports: No Symptoms Musculoskeletal: Reports: No Symptoms Skin: Reports: No Symptoms Neurological: Reports: No Symptoms Psychiatric: Reports: No Symptoms - Patient Data Vitals - Most Recent: Last Vital Signs Temp 97.1 F 05/15/18 11:23 Pulse 89 05/15/18 11:23 Resp 20 05/15/18 11:23 BP 122/75 05/15/18 11:23 Pulse Ox 97 05/15/18 11:23 Weight - Most Recent: 208 lb I&O - Last 24 Hours: Intake & Output 05/14/18 05/15/18 05/15/18 22:59 06:59 14:59 Intake Total 1190 3094 Balance 1190 3094 Lab Results Last 24 Hours: Laboratory Results - last 24 hr 05/14/18 05/15/18 05/15/18 Range/Units 16:41 05:50 05:50 WBC 17.4 H (5.0-10.0) 10^3/uL RBC 3.82 L (4.2-5.4) 10^6/uL Hgb 10.6 L (12.0-16.0) g/dL Hct 32.4 L (37.0-47.0) % MCV 84.8 (80-100) fL MCH 27.7 (27.0-34.0) pg MCHC 32.7 L (33.0-35.0) g/dL Plt Count 524 H D (150-450) 10^3/uL Neut % (Auto) 52.9 (42.2-75.2) % Lymph % (Auto) 37.0 (20.5-50.1) % [place] % (Auto) 8.6 H (2-8) % Eos % (Auto) 1.3 (1.0-3.0) % Baso % (Auto) 0.2 (0.0-1.0) % Add Manual Diff Yes Neutrophils % (Manual) 54 (42-75) % Band Neutrophils % 1 % Lymphocytes % (Manual) 39 (20-50) % Monocytes % (Manual) 5 (2-8) % Eosinophils % (Manual) 1 (1-3) % Sodium 137 (135-145) mmol/L Potassium 3.9 (3.6-5.0) mmol/L Chloride 108 (101-111) mmol/L Carbon Dioxide 23.0 (21.0-31.0) mmol/L Anion Gap 9.9 BUN 11 (7-18) mg/dL Creatinine 0.4 L (0.6-1.3) mg/dL Est Cr Clr Drug Dosing 153.37 mL/min Estimated GFR (MDRD) > 60 Glucose 90 (74-105) mg/dL POC Glucose 105 (70-105) mg/dl Calcium 8.4 (8.4-10.2) mg/dl 05/15/18 05/15/18 Range/Units 07:55 10:54 WBC (5.0-10.0) 10^3/uL RBC (4.2-5.4) 10^6/uL Hgb (12.0-16.0) g/dL Hct (37.0-47.0) % MCV (80-100) fL MCH (27.0-34.0) pg MCHC (33.0-35.0) g/dL Plt Count (150-450) 10^3/uL Neut % (Auto) (42.2-75.2) % Lymph % (Auto) (20.5-50.1) % [place] % (Auto) (2-8) % Eos % (Auto) (1.0-3.0) % Baso % (Auto) (0.0-1.0) % Add Manual Diff Neutrophils % (Manual) (42-75) % Band Neutrophils % % Lymphocytes % (Manual) (20-50) % Monocytes % (Manual) (2-8) % Eosinophils % (Manual) (1-3) % Sodium (135-145) mmol/L Potassium (3.6-5.0) mmol/L Chloride (101-111) mmol/L Carbon Dioxide (21.0-31.0) mmol/L Anion Gap BUN (7-18) mg/dL Creatinine (0.6-1.3) mg/dL Est Cr Clr Drug Dosing mL/min Estimated GFR (MDRD) Glucose (74-105) mg/dL POC Glucose 77 87 (70-105) mg/dl Calcium (8.4-10.2) mg/dl Brett Results Last 24 Hours: Microbiology 05/13/18 12:43 Aerobic Blood Culture - Preliminary Blood - Venous - Lab Draw NO GROWTH AFTER 1 DAY Anaerobic Blood Culture - Preliminary NO GROWTH AFTER 1 DAY 05/13/18 12:38 Aerobic Blood Culture - Preliminary Blood - Venous NO GROWTH AFTER 1 DAY Anaerobic Blood Culture - Final Med Orders - Current: Current Medications Acetaminophen (Tylenol) 650 mg PO Q4H PRN PRN Reason: Pain Last Admin: 05/15/18 08:27 Dose: 650 mg Albuterol (Proventil Neb Soln) 2.5 mg NEB Q4HRRT FRANKI Last Admin: 05/15/18 08:25 Dose: 2.5 mg Benzocaine/Menthol (Cepacol Sore Throat) 1 lozenge MUCMEM Q6H PRN PRN Reason: Cough Last Admin: 05/15/18 04:42 Dose: 1 lozenge Benzonatate (Tessalon Perles) 100 mg PO QID FRANKI Docusate Sodium (Colace) 100 mg PO BID PRN PRN Reason: Constipation Last Admin: 05/14/18 09:26 Dose: 100 mg Docusate Sodium (Colace) 100 mg PO BID PRN PRN Reason: Constipation Enoxaparin Sodium (Lovenox) 40 mg SUBCUT DAILY [facility] Last Admin: 05/15/18 08:36 Dose: 40 mg Guaifenesin/Codeine Phosphate (Robitussin Ac) 5 ml PO Q6H PRN PRN Reason: Cough Last Admin: 05/15/18 04:42 Dose: 5 ml Levofloxacin/Dextrose 750 mg/ (Premix) 150 mls @ 100 mls/hr IV Q24H [facility] Insulin Aspart (Novolog) 0 unit SUBCUT ACBED [facility]; Protocol Last Admin: 05/15/18 08:08 Dose: Not Given Omeprazole (Omeprazole) 20 mg PO ACBRK [facility] Last Admin: 05/15/18 05:15 Dose: 20 mg Ondansetron HCl (Zofran) 4 mg IVPUSH Q6H PRN PRN Reason: Nausea/Vomiting Last Admin: 05/15/18 04:20 Dose: 4 mg Oxycodone HCl (Oxycodone) 5 mg PO Q6H PRN PRN Reason: Pain Last Admin: 05/15/18 08:26 Dose: 5 mg Sodium Chloride (Saline Flush) 10 ml FLUSH ASDIRECTED PRN PRN Reason: Keep Vein Open Discontinued Medications Acetaminophen (Tylenol) 650 mg PO Q6H PRN PRN Reason: Pain Last Admin: 05/13/18 16:21 Dose: 650 mg Albuterol (Proventil Neb Soln) 2.5 mg NEB Q2H PRN PRN Reason: shortness of breath/wheezing Last Admin: 05/14/18 09:25 Dose: 2.5 mg Benzonatate (Tessalon Perles) 100 mg PO TID PRN PRN Reason: Cough Last Admin: 05/14/18 06:13 Dose: 100 mg Benzonatate (Tessalon Perles) 100 mg PO TID [facility] Last Admin: 05/15/18 08:27 Dose: 100 mg Ceftriaxone Sodium (Rocephin) 1 gm IVPUSH Q24H [facility] Last Admin: 05/14/18 12:37 Dose: 1 gm Doxycycline Hyclate 100 mg/ (Sodium Chloride) 100 mls @ 100 mls/hr IV Q12HR [facility] Last Admin: 05/14/18 11:27 Dose: Not Given Sodium Chloride (Normal Saline) 1,000 mls @ 125 mls/hr IV ASDIRECTED [facility] Last Admin: 05/15/18 00:47 Dose: 125 mls/hr Doxycycline Hyclate 100 mg/ (Sodium Chloride) 100 mls @ 100 mls/hr IV Q12HR [facility] Last Admin: 05/15/18 08:24 Dose: 100 mls/hr Oxycodone HCl (Oxycodone) 5 mg PO ONETIME ONE Stop: 05/15/18 01:00 Last Admin: 05/15/18 01:28 Dose: 5 mg Oxycodone HCl (Oxycodone) Confirm Administered Dose 5 mg .ROUTE .STK-MED ONE Stop: 05/15/18 01:27 Last Admin: 05/15/18 04:55 Dose: Not Given Oxycodone/Acetaminophen (Percocet 325-5 Mg) 1 tab PO Q6H PRN PRN Reason: Pain - Exam Quality Assessment: Supplemental Oxygen, DVT Prophylaxis General: Alert, Oriented HEENT: Pupils Equal, Pupils Reactive, EOMI, Mucous Membr. Moist/[place] Neck: Supple Lungs: Clear to Auscultation, Normal Respiratory Effort Cardiovascular: Regular Rate, Regular Rhythm GI/Abdominal Exam: Normal Bowel Sounds, Soft, Non-Tender, No Organomegaly, No Distention, No Abnormal Bruit, No Mass, Pelvis Stable (Female) Exam: Normal External Exam, Normal Speculum Exam, Normal Bimanual Exam Back Exam: Normal Inspection, Full Range of Motion Extremities: Normal Inspection, Normal Range of Motion, Non-Tender, No Pedal Edema, Normal Capillary Refill Skin: Warm, Dry, Intact Wound/Incisions: Healing Well Neurological: No New Focal Deficit Psy/Mental Status: Alert, Normal Affect, Normal Mood - Problem List & Annotations (1) Sepsis SNOMED Code(s): 80874134 Code(s): A41.9 - SEPSIS, UNSPECIFIED ORGANISM Status: Acute Current Visit : Yes - Problem List Review Problem List Initiated/Reviewed/Updated: Yes - My Orders Last 24 Hours: My Active Orders 05/14/18 11:00 Albuterol [Proventil Neb Soln] 2.5 mg NEB Q4HRRT Insulin Aspart [NovoLOG] See Protocol SUBCUT ACBED 05/14/18 14:00 Omeprazole 20 mg PO ACBRK 05/14/18 22:56 Blood Glucose Check, Bedside [RC] QIDACANDBED 05/15/18 00:58 oxyCODONE 5 mg PO Q6H PRN 05/15/18 09:54 Docusate Sodium [Colace] 100 mg PO BID PRN 05/15/18 10:00 Levofloxacin/Dextrose 5%-Water [Levaquin in D5W 750 MG/150 ML] 750 mg Premix Bag 1 bag IV Q24H 05/15/18 11:33 Convert IV to Saline Lock [OM.PC] Routine 05/15/18 13:00 Benzonatate [Tessalon Perles] 100 mg PO QID 05/16/18 05:00 BASIC METABOLIC PANEL,BMP [CHEM] DAILY CBC W/O DIFF,HEMOGRAM [HEME] DAILY 05/17/18 05:00 BASIC METABOLIC PANEL,BMP [CHEM] DAILY CBC W/O DIFF,HEMOGRAM [HEME] DAILY - Plan Plan:: #. Sepsis The patient presented with fever temperature up to 102. She also has leukocytosis withwhite cell count of 19,000. She was tachycardic. This is likely due to community-acquired pneumonia #. Probable community-acquired pneumonia Patient has been coughing for the past 5 days. It is productive of thick greenish sputum. Chest x-ray showed hazy density of the right lower base likely pneumonia. #. 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 Tobacco use disorder Patient smokes about half a pack of cigarettes a day. Expresses intention to quit #. Diabetes mellitus the patient has been on oral hypoglycemic agent metformin #. Hypertension Patient is on oral lisinopril. Plan: IV Levaquin Follow sputum for Gram stain and cultures Follow blood cultures 2 Nebulizer with bronchodilators. Diabetic diet Full code
[2018-05-15] MEDS: Levofloxacin/Dextrose 5%-Water 750 MG in Premix Bag 1 BAG IV SCH (11:59)
[2018-05-16] MEDS: Albuterol 0.083% 2.5 MG/3 ML Neb Soln NEB SCH ×3 (02:22→11:46)
[2018-05-16] MEDS: Codeine/guaiFENesin 100-10 MG/5 ML Syrup 5 ML Cup PO PRN (06:14)
[2018-05-16] MEDS: Omeprazole 20 MG Cap.CR PO SCH (06:14)
[2018-05-16 06:59] LABS: ANION GAP 14.3; CHLORIDE,CL 101 mmol/L (101-111); SODIUM,NA 137 mmol/L (135-145)
[2018-05-16] MEDS: Insulin Aspart 100 Units/ML 3 ML Pen SUBCUT SCH ×2 (08:11→12:04)
[2018-05-16] MEDS: Benzonatate 100 MG Cap PO SCH ×2 (08:42→12:08)
[2018-05-16] MEDS: Docusate Sodium 100 MG Cap PO PRN (08:42)
[2018-05-16] MEDS: Enoxaparin 40 MG/0.4 ML Syringe SUBCUT SCH (08:42)
[2018-05-16] MEDS: Acetaminophen 325 MG Tab PO PRN (08:46)
[2018-05-16] MEDS: Levofloxacin/Dextrose 5%-Water 750 MG in Premix Bag 1 BAG IV SCH (09:47)
[2018-05-16] MEDS ORDERED: Doxycycline 100 MG Cap PO SCH (11:00)
[2018-05-16] MEDS ORDERED: Levofloxacin 250 MG Tab PO SCH (11:00)
--- NOTE | 2018-05-16 11:15 | PCM.DCSUM1 ---
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 The patient presented to the emergency room with complaint of cough which has been going on for the 5 days. And got progressively worse. It was productive of thick greenish sputum. Patient was seen in the emergency room and sent home with oral antibiotics. On getting back home she continued to have fever with temperature up to 102. She also was having associated shortness of breath and sore throat. Patient has had previous pneumonias that were considered very severe. CXR showed hazy density of the right lower base likely pneumonia. She was admitted for pneumonia and started on IV abx. sputum gram stain showed gra pos cocci in chains, gram pos diplococci, gram negative rods. Sputum cx was pos for haemophilus sp. She improved on abx and her course was uncomplicated. She was seen this morning with no new complaints. Her wbc trended down to14. She is being discharge home to complete PO abx for 10 days. She will follow with her PCP in 5 days. Diagnosis: Stroke: No - Discharge Data Discharge Date: 05/16/18 Discharge Disposition: Home, Self-Care 01 Condition: Good - Discharge Diagnosis/Problem(s) (1) Sepsis SNOMED Code(s): 30632882 ICD Code: A41.9 - SEPSIS, UNSPECIFIED ORGANISM Status: Acute Current Visit: Yes - Patient Instructions Diet: Regular Diet as Tolerated Activity: As Tolerated Notify Provider of: Fever, Increased Pain, Swelling and Redness, Nausea and/or Vomiting - Discharge Plan Prescriptions/Med Rec: Acetaminophen [Tylenol] 650 mg PO Q6H PRN 5 Days #20 tablet PRN Reason: Pain Codeine/guaiFENesin [Robitussin AC] 5 ml PO Q6H PRN 5 Days #1 cup PRN Reason: Cough Doxycycline [Vibramycin] 100 mg PO BID 10 Days #20 cap levoFLOXacin [Levaquin] 750 mg PO Q24H 10 Days #15 tablet Home Medications: Home Meds Lisinopril [Prinivil] 10 mg PO DAILY 09/12/17 [History] Mirtazapine 30 mg PO BEDTIME 09/12/17 [History] Prazosin HCl [Prazosin] 5 mg PO BEDTIME 09/12/17 [History] Cholecalciferol (Vitamin D3) [Vitamin D3] 1,000 unit PO DAILY 03/26/18 [History] Multivitamin [Multivitamins] 1 cap PO DAILY 03/26/18 [History] Albuterol [Ventolin HFA] 2 puff INH Q4HRRT PRN 05/13/18 [History] Aspirin [Lilia Chewable Aspirin] 81 mg PO DAILY 05/13/18 [History] Gabapentin [Neurontin] 300 mg PO TID 05/13/18 [History] Omeprazole 20 mg PO DAILY 05/13/18 [History] Pravastatin [Pravachol] 40 mg PO DAILY 05/13/18 [History] metFORMIN HCl [Metformin HCl] 500 mg PO BID 05/13/18 [History] Acetaminophen [Tylenol] 650 mg PO Q6H PRN 5 Days #20 tablet 05/16/18 [Rx] Codeine/guaiFENesin [Robitussin AC] 5 ml PO Q6H PRN 5 Days #1 cup 05/16/18 [Rx] Doxycycline [Vibramycin] 100 mg PO BID 10 Days #20 cap 05/16/18 [Rx] levoFLOXacin [Levaquin] 750 mg PO Q24H 10 Days #15 tablet 05/16/18 [Rx] Patient Handouts: Doxycycline tablets or capsules, Levofloxacin tablets, Community-Acquired Pneumonia, Adult, [id number] - Discharge Summary/Plan Comment DC Time >30 min.: Yes - General Info Date of Service: 05/16/18 Admission Dx/Problem (Free Text: Admission Diagnosis/Problem Admission Diagnosis/Problem Pneumonia due to organism Subjective Update: Patient is a 47-year-old female with medical history of hypertension, diabetes mellitus, 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 The patient presented to the emergency room with complaint of cough which has been going on for the 5 days. And got progressively worse. It was productive of thick greenish sputum. Patient was seen in the emergency room and sent home with oral antibiotics. On getting back home she continued to have fever with temperature up to 102. She also was having associated shortness of breath and sore throat. Patient has had previous pneumonias that were considered very severe. CXR showed hazy density of the right lower base likely pneumonia. She was admitted for pneumonia and started on IV abx. sputum gram stain showed gra pos cocci in chains, gram pos diplococci, gram negative rods. Sputum cx was pos for haemophilus sp. She improved on abx and her course was uncomplicated. She was seen this morning with no new complaints. Her wbc trended down to14. She is being discharge home to complete PO abx for 10 days. She will follow with her PCP in 5 days. Functional Status: Reports: Pain Controlled - Review of Systems General: Reports: No Symptoms HEENT: Reports: No Symptoms Pulmonary: Reports: No Symptoms Cardiovascular: Reports: No Symptoms Gastrointestinal: Reports: No Symptoms Genitourinary: Reports: No Symptoms Musculoskeletal: Reports: No Symptoms Skin: Reports: No Symptoms Neurological: Reports: No Symptoms Psychiatric: Reports: No Symptoms - Patient Data Vitals - Most Recent: Last Vital Signs Temp 97.4 F 05/16/18 08:00 Pulse 78 05/16/18 08:00 Resp 20 05/16/18 08:00 BP 112/72 05/16/18 08:00 Pulse Ox 98 05/16/18 08:00 Weight - Most Recent: 208 lb I&O - Last 24 hours: Intake & Output 05/15/18 05/16/18 05/16/18 22:59 06:59 14:59 Intake Total 1280 200 240 Balance 1280 200 240 Lab Results - Last 24 hrs: Laboratory Results - last 24 hr 05/15/18 05/15/18 05/15/18 Range/Units 10:54 16:40 20:38 WBC (5.0-10.0) 10^3/uL RBC (4.2-5.4) 10^6/uL Hgb (12.0-16.0) g/dL Hct (37.0-47.0) % MCV (80-100) fL MCH (27.0-34.0) pg MCHC (33.0-35.0) g/dL Plt Count (150-450) 10^3/uL Sodium (135-145) mmol/L Potassium (3.6-5.0) mmol/L Chloride (101-111) mmol/L Carbon Dioxide (21.0-31.0) mmol/L Anion Gap BUN (7-18) mg/dL Creatinine (0.6-1.3) mg/dL Est Cr Clr Drug Dosing mL/min Estimated GFR (MDRD) Glucose (74-105) mg/dL POC Glucose 87 109 H 100 (70-105) mg/dl Calcium (8.4-10.2) mg/dl 05/16/18 05/16/18 05/16/18 Range/Units 06:05 06:05 07:55 WBC 14.6 H (5.0-10.0) 10^3/uL RBC 4.62 (4.2-5.4) 10^6/uL Hgb 12.7 D (12.0-16.0) g/dL Hct 38.2 (37.0-47.0) % MCV 82.7 (80-100) fL MCH 27.5 (27.0-34.0) pg MCHC 33.2 (33.0-35.0) g/dL Plt Count 520 H (150-450) 10^3/uL Sodium 137 (135-145) mmol/L Potassium 4.3 (3.6-5.0) mmol/L Chloride 101 (101-111) mmol/L Carbon Dioxide 26.0 (21.0-31.0) mmol/L Anion Gap 14.3 BUN 10 (7-18) mg/dL Creatinine 0.6 (0.6-1.3) mg/dL Est Cr Clr Drug Dosing 102.25 mL/min Estimated GFR (MDRD) > 60 Glucose 81 (74-105) mg/dL POC Glucose 83 (70-105) mg/dl Calcium 9.3 (8.4-10.2) mg/dl IAN Results - Last 24 hrs: Microbiology 05/13/18 10:15 Gram Stain - Final Sputum - Expectorated Sputum Culture - Final Haemophilus Sp, Not Influenza 05/13/18 12:43 Aerobic Blood Culture - Preliminary Blood - Venous - Lab Draw NO GROWTH AFTER 2 DAYS Anaerobic Blood Culture - Preliminary NO GROWTH AFTER 2 DAYS 05/13/18 12:38 Aerobic Blood Culture - Preliminary Blood - Venous NO GROWTH AFTER 2 DAYS Anaerobic Blood Culture - Final Med Orders - Current: Current Medications Acetaminophen (Tylenol) 650 mg PO Q4H PRN PRN Reason: Pain Last Admin: 05/16/18 08:46 Dose: 650 mg Albuterol (Proventil Neb Soln) 2.5 mg NEB Q4HRRT FRANKI Last Admin: 05/16/18 06:18 Dose: 2.5 mg Benzocaine/Menthol (Cepacol Sore Throat) 1 lozenge MUCMEM Q6H PRN PRN Reason: Cough Last Admin: 05/15/18 11:59 Dose: 1 lozenge Benzonatate (Tessalon Perles) 100 mg PO QID [facility] Last Admin: 05/16/18 08:42 Dose: 100 mg Docusate Sodium (Colace) 100 mg PO BID PRN PRN Reason: Constipation Last Admin: 05/16/18 08:42 Dose: 100 mg Docusate Sodium (Colace) 100 mg PO BID PRN PRN Reason: Constipation Doxycycline Hyclate (Vibramycin) 100 mg PO BID [facility] Enoxaparin Sodium (Lovenox) 40 mg SUBCUT DAILY [facility] Last Admin: 05/16/18 08:42 Dose: 40 mg Guaifenesin/Codeine Phosphate (Robitussin Ac) 5 ml PO Q6H PRN PRN Reason: Cough Last Admin: 05/16/18 06:14 Dose: 5 ml Insulin Aspart (Novolog) 0 unit SUBCUT ACBED [facility]; Protocol Last Admin: 05/16/18 08:11 Dose: Not Given Levofloxacin (Levaquin) 750 mg PO Q24H [facility] Omeprazole (Omeprazole) 20 mg PO ACBRK [facility] Last Admin: 05/16/18 06:14 Dose: 20 mg Ondansetron HCl (Zofran) 4 mg IVPUSH Q6H PRN PRN Reason: Nausea/Vomiting Last Admin: 05/15/18 13:10 Dose: 4 mg Oxycodone HCl (Oxycodone) 5 mg PO Q6H PRN PRN Reason: Pain Last Admin: 05/15/18 22:41 Dose: 5 mg Sodium Chloride (Saline Flush) 10 ml FLUSH ASDIRECTED PRN PRN Reason: Keep Vein Open Last Admin: 05/15/18 13:33 Dose: 10 ml Discontinued Medications Acetaminophen (Tylenol) 650 mg PO Q6H PRN PRN Reason: Pain Last Admin: 05/13/18 16:21 Dose: 650 mg Albuterol (Proventil Neb Soln) 2.5 mg NEB Q2H PRN PRN Reason: shortness of breath/wheezing Last Admin: 05/14/18 09:25 Dose: 2.5 mg Benzonatate (Tessalon Perles) 100 mg PO TID PRN PRN Reason: Cough Last Admin: 05/14/18 06:13 Dose: 100 mg Benzonatate (Tessalon Perles) 100 mg PO TID [facility] Last Admin: 05/15/18 08:27 Dose: 100 mg Ceftriaxone Sodium (Rocephin) 1 gm IVPUSH Q24H [facility] Last Admin: 05/14/18 12:37 Dose: 1 gm Doxycycline Hyclate 100 mg/ (Sodium Chloride) 100 mls @ 100 mls/hr IV Q12HR [facility] Last Admin: 05/14/18 11:27 Dose: Not Given Sodium Chloride (Normal Saline) 1,000 mls @ 125 mls/hr IV ASDIRECTED [facility] Last Infusion: 05/15/18 15:44 Dose: 125 mls/hr Doxycycline Hyclate 100 mg/ (Sodium Chloride) 100 mls @ 100 mls/hr IV Q12HR [facility] Last Admin: 05/15/18 08:24 Dose: 100 mls/hr Levofloxacin/Dextrose 750 mg/ (Premix) 150 mls @ 100 mls/hr IV Q24H [facility] Last Admin: 05/16/18 09:47 Dose: Not Given Oxycodone HCl (Oxycodone) 5 mg PO ONETIME ONE Stop: 05/15/18 01:00 Last Admin: 05/15/18 01:28 Dose: 5 mg Oxycodone HCl (Oxycodone) Confirm Administered Dose 5 mg .ROUTE .STK-MED ONE Stop: 05/15/18 01:27 Last Admin: 05/15/18 04:55 Dose: Not Given Oxycodone/Acetaminophen (Percocet 325-5 Mg) 1 tab PO Q6H PRN PRN Reason: Pain - Exam General: Reports: Alert, Oriented HEENT: Reports: Pupils Equal, Pupils Reactive, EOMI, Mucous Membr. Moist/[place] Neck: Reports: Supple Lungs: Reports: Clear to Auscultation, Normal Respiratory Effort Cardiovascular: Reports: Regular Rate, Regular Rhythm GI/Abdominal Exam: Normal Bowel Sounds, Soft, Non-Tender, No Organomegaly, No Distention, No Abnormal Bruit, No Mass, Pelvis Stable (Female) Exam: Normal External Exam, Normal Speculum Exam, Normal Bimanual Exam Rectal (Female) Exam: Normal Exam, Normal Rectal Tone Back Exam: Reports: Normal Inspection, Full Range of Motion Extremities: Normal Inspection, Normal Range of Motion, Non-Tender, No Pedal Edema, Normal Capillary Refill Skin: Reports: Warm, Dry, Intact Wound/Incisions: Reports: Healing Well Neurological: Reports: No New Focal Deficit Psy/Mental Status: Reports: Alert, Normal Affect, Normal Mood
[2018-05-16] MEDS: oxyCODONE 5 MG Tab PO PRN (11:55)
[2018-05-16] MEDS: Benzocaine/Cetylpyridinium/Menthol Lozenge MUCMEM PRN (11:56)
== END 2018-05-16 15:12 | disposition home or self-care (01) | DRG 871 ==
LOC: DL.MS 09:53 → OBSVTOIN 12:12 → EEVIPCON 12:12
PROVIDERS: ADMIT Hospitalist; ATTEND Hospitalist
DX: A41.9 Sepsis, unspecified organism (principal); J15.8 Pneumonia due to other specified bacteria; F17.210 Nicotine dependence, cigarettes, uncomplicated; E11.9 Type 2 diabetes mellitus without complications; I10 Essential (primary) hypertension; E66.9 Obesity, unspecified; Z68.30 Body mass index [BMI] 30.0-30.9, adult; Z79.84 Long term (current) use of oral hypoglycemic drugs; Z90.81 Acquired absence of spleen; Z88.0 Allergy status to penicillin; Z88.8 Allergy status to other drugs, medicaments and biological substances; Z79.899 Other long term (current) drug therapy; Z79.82 Long term (current) use of aspirin; Z87.01 Personal history of pneumonia (recurrent); Z87.440 Personal history of urinary (tract) infections
CPT/HCPCS: 36415; 80048; 82962; 83605; 83735; 84100; 85025; 85027; 87040; 87070; 87205; 94640; A9270-GY; J0696; J1650; J1815-GY; J1956; J2405; J3490; J7030; J7050; J7620-GY

== ENCOUNTER 2019-09-21 11:51 | Emergency (ER) | payer SELFPAY | END 2019-09-21 15:10 | LOC: DL.ED 11:51 | DX: Z53.21 Procedure and treatment not carried out due to patient leaving prior to being seen by health care provider (principal) ==

== ENCOUNTER 2019-10-28 06:13 | Emergency (ER) | payer MEDICAID ==
[2019-10-28] MEDS ORDERED: Lidocaine 1% 30 ML SDV INJECT ONE (07:00)
[2019-10-28] MEDS ORDERED: HYDROmorphone 0.5 MG/0.5 ML Syringe IVPUSH ONE (07:21)
[2019-10-28] MEDS ORDERED: diphenhydrAMINE 50 MG/ML SDV IVPUSH ONE (07:21)
--- NOTE | 2019-10-28 07:30 | EDM.PDOC ---
<Asael Aly - Last Filed: 10/28/19 07:39> ED HPI GENERAL MEDICAL PROBLEM - General Chief Complaint: Skin Complaint Stated Complaint: BOIL Time Seen by Provider: 10/28/19 07:00 Source of Information: Reports: Patient, RN, RN Notes Reviewed History Limitations: Reports: No Limitations - History of Present Illness INITIAL COMMENTS - FREE TEXT/NARRATIVE: Patient states that she has had a "boil" on the underside of the L) buttock and is very painful to the touch. States she has had it for about a week. Denies seeing her PCP. States she has tried heat and tylenol. She states that she has felt fever/chills along with nausea but no vomiting. No other complaints at this time. Duration: Week(s): (1 week), Constant Location: Reports: Other (Left buttock) Quality: Reports: Throbbing Severity: Moderate Improves with: Reports: None Worsens with: Reports: None Associated Symptoms: Reports: Fever/Chills, Loss of Appetite, Nausea/Vomiting. Denies: Confusion, Chest Pain, Cough, Headaches, Shortness of Breath, Weakness Treatments GUT SORTER: Reports: Acetaminophen Left Lower Buttock Pain Score (Numeric/FACES): 9 - Related Data Allergies Allergy/AdvReac Type Severity Reaction Status Date / Time ketorolac [From Toradol] Allergy Cannot Verified 10/28/19 06:19 Remember Penicillins Allergy Cannot Verified 10/28/19 06:19 Remember Home Meds: Home Meds Lisinopril [Prinivil] 20 mg PO DAILY 09/12/17 [History] Mirtazapine 60 mg PO BEDTIME 09/12/17 [History] Prazosin HCl [Prazosin] 5 mg PO BEDTIME 09/12/17 [History] Cholecalciferol (Vitamin D3) [Vitamin D3] 1,000 unit PO DAILY 03/26/18 [History] Multivitamin [Multivitamins] 1 cap PO DAILY 03/26/18 [History] Albuterol [Ventolin HFA] 2 puff INH Q4HRRT PRN 05/13/18 [History] Aspirin [Lilia Chewable Aspirin] 81 mg PO DAILY 05/13/18 [History] Gabapentin [Neurontin] 1,200 mg PO TID 05/13/18 [History] Omeprazole 20 mg PO DAILY 05/13/18 [History] Pravastatin [Pravachol] 40 mg PO DAILY 05/13/18 [History] Acetaminophen [Tylenol] 650 mg PO Q6H PRN 5 Days #20 tablet 05/16/18 [Rx] Divalproex Sodium [Depakote] 1,500 mg PO DAILY 09/21/19 [History] Past Medical History HEENT History: Reports: Cataract, Impaired Vision, Other (See Below) Other HEENT History: bilateral cataracts Cardiovascular History: Reports: High Cholesterol, Hypertension, Other (See Below) Other Cardiovascular History: two mild heart attacks in the past Respiratory History: Reports: Asthma, Pneumonia, Recurrent, Other (See Below) Other Respiratory History: pleursy in 2013, 2016 Gastrointestinal History: Reports: None Genitourinary History: Reports: UTI, Recurrent 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 , Musculoskeletal History: Reports: Other (See Below) Other Musculoskeletal History: chronic left shoulder pain, torn rotator cuff Neurological History: Reports: Seizure, Other (See Below) Other Neuro History: hx traumatic brain injury Psychiatric History: Reports: Anxiety, Depression, PTSD Endocrine/Metabolic History: Reports: Diabetes, Type I, Obesity/BMI 30+, Other ( See Below) Other Endocrine/Metabolic History: metformin started Hematologic History: Reports: Other (See Below) Other Hematologic History: heradity spherocytosis Immunologic History: Reports: None Oncologic (Cancer) History: Reports: None Dermatologic History: Reports: None - Infectious Disease History Infectious Disease History: Reports: Chicken Pox, MRSA - Past Surgical History Head Surgeries/Procedures: Reports: None Respiratory Surgical History: Reports: None GI Surgical History: Reports: Other (See Below) Other GI Surgeries/Procedures: spleen, gallbladder removed Female Surgical History: Reports: Section Musculoskeletal Surgical History: Reports: Knee Replacement, Shoulder Surgery Other Musculoskeletal Surgeries/Procedures:: 2 right shoulder, 1 left should, 6 or 7 left knee Social & Family History - Family History Family Medical History: Noncontributory - Tobacco Use Smoking Status *Q: Current Every Day Smoker Years of Tobacco use: 30 Packs/Tins Daily: 0.2 Used Tobacco, but Quit: No Second Hand Smoke Exposure: Yes - Caffeine Use Caffeine Use: Reports: Coffee - Recreational Drug Use Recreational Drug Use: Yes Drug Use in Last 12 Months: Yes Recreational Drug Type: Reports: Marijuana/Hashish Recreational Drug Use Frequency: Weekly - Living Situation & Occupation Living situation: Reports: with Family ED ROS GENERAL - Review of Systems Review Of Systems: See Below Constitutional: Reports: Fever, Chills, Decreased Appetite. Denies: Weakness, Fatigue, Diaphoresis Respiratory: Reports: No Symptoms Cardiovascular: Reports: No Symptoms GI/Abdominal: Reports: Nausea. Denies: Abdominal Pain, Constipation, Diarrhea, Decreased Appetite, Difficulty Swallowing, Vomiting : Reports: No Symptoms Skin: Reports: Other (abscess on left buttock) Neurological: Reports: No Symptoms Psychiatric: Reports: No Symptoms Hematologic/Lymphatic: Reports: No Symptoms Immunologic: Reports: No Symptoms ED EXAM, SKIN/RASH Exam: See Below Exam Limited By: No Limitations General Appearance: Alert, WD/WN, No Apparent Distress Respiratory/Chest: No Respiratory Distress, Lungs Clear, Normal Breath Sounds, No Accessory Muscle Use, Chest Non-Tender Cardiovascular: Normal Peripheral Pulses, Regular Rate, Rhythm, No Edema, No Gallop, No JVD, No Murmur, No Rub GI/Abdominal: Normal Bowel Sounds, Soft, Non-Tender, No Organomegaly, No Distention, No Abnormal Bruit, No Mass (Female) Exam: Deferred Rectal (Female) Exam: Deferred Neurological: Alert, Oriented, CN II-XII Intact, Normal Cognition, Normal Gait, Normal Reflexes, No Motor/Sensory Deficits Psychiatric: Normal Affect, Normal Mood Skin: Warm, Erythema (cellulitis surrounding abscess on left buttock), Increased Warmth, Wound/Incision (abscess on left buttock) Characteristics: Erythematous Associated features: Warmth, Tenderness, Swelling Lymphatic: No Adenopathy ED SKIN PROCEDURES - I&D Site: left buttock Skin Prep: Chlorhexidine (Hibiciens) Local Anesthesia: Lidocaine: 1% Plain Local Anesthetic Volume: Other (20 cc) Area Incised With: 11 Blade Drainage: Purulent, Bloody Probed to Break Up Loculations: Yes Packed With: 1/4 in. Iodoform Sterile Dressing: Other Complications: No Course - Vital Signs Last Recorded V/S: Last Vital Signs Temp 97.6 F 10/28/19 06:25 Pulse 98 10/28/19 06:25 Resp 16 10/28/19 06:25 BP 157/96 H 10/28/19 06:25 Pulse Ox 100 10/28/19 06:25 - Orders/Labs/Meds Orders: Active Orders 24 hr Category Date Time Status CULTURE WOUND [RM] Stat Lab 10/28/19 07:23 Ordered Vancomycin 1,500 mg Med 10/28/19 07:20 Active Sodium Chloride 0.9% [Normal Saline] 500 ml IV ONETIME Medication Orders Vancomycin HCl 1,500 mg/ (Sodium Chloride) 500 mls @ 333.333 mls/hr IV ONETIME ONE Stop: 10/28/19 08:49 Meds: Medications Generic Name Dose Route Start Last Admin Trade Name Freq PRN Reason Stop Dose Admin Vancomycin HCl 1,500 mg/ 500 mls @ 333.333 mls/hr 10/28/19 07:20 Sodium Chloride IV 10/28/19 08:49 ONETIME ONE Discontinued Medications Generic Name Dose Route Start Last Admin Trade Name Freq PRN Reason Stop Dose Admin Diphenhydramine HCl 25 mg 10/28/19 07:21 Benadryl IVPUSH 10/28/19 07:22 ONETIME ONE Hydromorphone HCl 0.5 mg 10/28/19 07:21 Dilaudid IVPUSH 10/28/19 07:22 ONETIME ONE Lidocaine HCl 30 ml 10/28/19 07:00 10/28/19 07:06 Xylocaine-Mpf 1% INJECT 10/28/19 07:01 30 ml ONETIME ONE Administration Departure - Departure Time of Disposition: 08:30 Disposition: Home, Self-Care 01 Condition: Good Clinical Impression: Abscess of buttock, left - Discharge Information *PRESCRIPTION DRUG MONITORING PROGRAM REVIEWED*: Not Applicable *COPY OF PRESCRIPTION DRUG MONITORING REPORT IN PATIENT FELY: Not Applicable Instructions: Incision and Drainage, Skin Abscess, [id number] Forms: ED Department Discharge Additional Instructions: Take the full course of antibiotic Doxycycline and Clindamycin. Keep area clean, can shower normally. You can either pull out the wound packing yourself after 24 hours or follow-up in clinic after 24 hours and have your primary provider remove it. Follow-up in clinic next week FridayNov 01 for recheck of wound and to make sure antibiotic is working properly. Sepsis Event Note - Evaluation Sepsis Screening Result: No Definite Risk - Focused Exam Vital Signs: Vital Signs Temp Pulse Resp BP Pulse Ox 10/28/19 06:25 97.6 F 98 16 157/96 H 100 Date Exam was Performed: 10/28/19 Time Exam was Performed: 07:39 - My Orders Last 24 Hours: My Active Orders 10/28/19 07:20 Vancomycin 1,500 mg Sodium Chloride 0.9% [Normal Saline] 500 ml IV ONETIME - Assessment/Plan Last 24 Hours: My Active Orders 10/28/19 07:20 Vancomycin 1,500 mg Sodium Chloride 0.9% [Normal Saline] 500 ml IV ONETIME <DrewArtem Dykes - Last Filed: 10/28/19 07:52> ED HPI GENERAL MEDICAL PROBLEM - History of Present Illness INITIAL COMMENTS - FREE TEXT/NARRATIVE: Hx of DM (borderline), and s/p spleen removal. Hx of MRSA. Course - Re-Assessments/Exams Free Text/Narrative Re-Assessment/Exam: 10/28/19 07:51 I personally performed or re-performed the physical examination and medical decision making. I have verified all student documentation or findings, including history, physical exam and/or medical decision making. Sepsis Event Note - Focused Exam Date Exam was Performed: 10/28/19 Time Exam was Performed: 07:50
== END 2019-10-28 09:54 | disposition home or self-care (01) ==
LOC: DL.ED 06:13
DX: L02.31 Cutaneous abscess of buttock (principal); E78.00 Pure hypercholesterolemia, unspecified; J45.909 Unspecified asthma, uncomplicated; I10 Essential (primary) hypertension; F41.9 Anxiety disorder, unspecified; F32.9 Major depressive disorder, single episode, unspecified; E10.9 Type 1 diabetes mellitus without complications; E66.9 Obesity, unspecified; F17.210 Nicotine dependence, cigarettes, uncomplicated; Z88.0 Allergy status to penicillin; Z88.6 Allergy status to analgesic agent; Z79.899 Other long term (current) drug therapy; Z79.82 Long term (current) use of aspirin; Z68.34 Body mass index [BMI] 34.0-34.9, adult
CPT/HCPCS: 10060; 87070; 87077; 87186; 96365; 96366; 96375; 99283; J1170; J1200; J2001; J3370; J7040

== ENCOUNTER 2020-01-13 14:33 | Emergency (ER) | payer MEDICAID ==
--- NOTE | 2020-01-13 15:33 | EDM.PDOC ---
ED HPI GENERAL MEDICAL PROBLEM - General Chief Complaint: Skin Complaint Stated Complaint: RIGHT ARM BITE WOUND. RIGHT SHOULDER INFLAMED Time Seen by Provider: 01/13/20 15:33 Source of Information: Reports: Patient, RN, RN Notes Reviewed History Limitations: Reports: No Limitations - History of Present Illness INITIAL COMMENTS - FREE TEXT/NARRATIVE: Patient presents to ER with complaint of pain of right shoulder and right forearm, weakness in the right arm. Patient states she has been bruising on the right arm and is unsure why. Patient points out bruising on the right upper arm and on the right forearm, that appears to be old. Patient states she has not fallen or been assaulted in any way. Patient states she had a rotator cuff surgery on the right shoulder 2 years ago and does have some arthritis in that right shoulder. Patient states she has decreased strength in the right arm for the past 2 weeks. Patient does states she has been bruising more often than usual, which she states she feels is unusual. Patient denies taking any blood thinners, aspirin, frequent ibuprofen, or drinking alcohol. Patient does state she has a decreased immune system. Onset: Today, Sudden - Related Data Allergies Allergy/AdvReac Type Severity Reaction Status Date / Time ketorolac [From Toradol] Allergy Cannot Verified 01/13/20 15:14 Remember Penicillins Allergy Cannot Verified 01/13/20 15:14 Remember Home Meds: Home Meds Lisinopril [Prinivil] 20 mg PO DAILY 09/12/17 [History] Mirtazapine 60 mg PO BEDTIME 09/12/17 [History] Prazosin HCl [Prazosin] 5 mg PO BEDTIME 09/12/17 [History] Cholecalciferol (Vitamin D3) [Vitamin D3] 1,000 unit PO DAILY 03/26/18 [History] Multivitamin [Multivitamins] 1 cap PO DAILY 03/26/18 [History] Albuterol [Ventolin HFA] 2 puff INH Q4HRRT PRN 05/13/18 [History] Aspirin [Lilia Chewable Aspirin] 81 mg PO DAILY 05/13/18 [History] Gabapentin [Neurontin] 1,200 mg PO TID 05/13/18 [History] Omeprazole 20 mg PO DAILY 05/13/18 [History] Pravastatin [Pravachol] 40 mg PO DAILY 05/13/18 [History] Acetaminophen [Tylenol] 650 mg PO Q6H PRN 5 Days #20 tablet 05/16/18 [Rx] Divalproex Sodium [Depakote] 1,500 mg PO DAILY 09/21/19 [History] Past Medical History HEENT History: Reports: Cataract, Impaired Vision, Other (See Below) Other HEENT History: bilateral cataracts Cardiovascular History: Reports: High Cholesterol, Hypertension, Other (See Below) Other Cardiovascular History: two mild heart attacks in the past Respiratory History: Reports: Asthma, Pneumonia, Recurrent, Other (See Below) Other Respiratory History: pleursy in 2013, 2016 Gastrointestinal History: Reports: None Genitourinary History: Reports: UTI, Recurrent 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 , Musculoskeletal History: Reports: Other (See Below) Other Musculoskeletal History: chronic left shoulder pain, torn rotator cuff Neurological History: Reports: Seizure, Other (See Below) Other Neuro History: hx traumatic brain injury Psychiatric History: Reports: Anxiety, Depression, PTSD Endocrine/Metabolic History: Reports: Diabetes, Type I, Obesity/BMI 30+, Other ( See Below) Other Endocrine/Metabolic History: metformin started Hematologic History: Reports: Other (See Below) Other Hematologic History: heradity spherocytosis Immunologic History: Reports: None Oncologic (Cancer) History: Reports: None Dermatologic History: Reports: None - Infectious Disease History Infectious Disease History: Reports: Chicken Pox, MRSA - Past Surgical History Head Surgeries/Procedures: Reports: None Respiratory Surgical History: Reports: None GI Surgical History: Reports: Other (See Below) Other GI Surgeries/Procedures: spleen, gallbladder removed Female Surgical History: Reports: Section Musculoskeletal Surgical History: Reports: Knee Replacement, Shoulder Surgery Other Musculoskeletal Surgeries/Procedures:: 2 right shoulder, 1 left should, 6 or 7 left knee Social & Family History - Family History Family Medical History: Noncontributory - Caffeine Use Caffeine Use: Reports: Coffee - Living Situation & Occupation Living situation: Reports: with Family ED ROS GENERAL - Review of Systems Review Of Systems: Comprehensive ROS is negative, except as noted in HPI. ED EXAM, SKIN/RASH Exam: See Below Exam Limited By: No Limitations General Appearance: Alert, WD/WN, No Apparent Distress Eye Exam: Bilateral Eye: EOMI, Normal Inspection Ears: Normal External Exam, Hearing Grossly Normal Nose: Normal Inspection Throat/Mouth: Normal Inspection, No Airway Compromise Head: Atraumatic, Normocephalic Neck: Normal Inspection, Supple, Non-Tender, Full Range of Motion Respiratory/Chest: No Respiratory Distress, Lungs Clear, Normal Breath Sounds, No Accessory Muscle Use, Chest Non-Tender Cardiovascular: Normal Peripheral Pulses, Regular Rate, Rhythm, No Edema, No Gallop, No JVD, No Murmur, No Rub Peripheral Pulses: 2+: Radial (L), Radial (R) GI/Abdominal: Normal Bowel Sounds, Soft, Non-Tender (Female) Exam: Deferred Rectal (Female) Exam: Deferred Back Exam: Normal Inspection, Full Range of Motion, NT Extremities: Normal Inspection, Arm Pain (right arm), Limited Range of Motion ( right arm), Other (decreased strength right arm) Neurological: Alert, Oriented, CN II-XII Intact, Normal Cognition, Normal Gait, No Motor/Sensory Deficits Psychiatric: Normal Affect, Normal Mood Skin: Warm, Dry, Intact, Ecchymosis (old/green bruising to the right forearm and right upper arm) Location, Skin: Upper Extremity, Right Lymphatic: No Adenopathy Course - Vital Signs Last Recorded V/S: Last Vital Signs Temp 96.6 F L 01/13/20 15:28 Pulse 90 01/13/20 15:28 Resp 16 01/13/20 15:28 BP 128/89 01/13/20 15:28 Pulse Ox 100 01/13/20 15:28 - Orders/Labs/Meds Labs: Laboratory Tests 01/13/20 01/13/20 Range/Units 16:10 16:10 WBC 9.8 (5.0-10.0) 10^3/uL RBC 5.13 (4.2-5.4) 10^6/uL Hgb 14.0 (12.0-16.0) g/dL Hct 40.8 (37.0-47.0) % MCV 79.5 L D (80-100) fL MCH 27.3 (27.0-34.0) pg MCHC 34.3 (33.0-35.0) g/dL Plt Count 417 D (150-450) 10^3/uL Neut % (Auto) 49.1 (42.2-75.2) % Lymph % (Auto) 34.4 (20.5-50.1) % [place] % (Auto) 10.2 H (2-8) % Eos % (Auto) 5.6 H (1.0-3.0) % Baso % (Auto) 0.7 (0.0-1.0) % Sodium 138 (136-145) mmol/L Potassium 4.0 (3.5-5.1) mmol/L Chloride 103 (98-107) mmol/L Carbon Dioxide 26 (21-32) mmol/L Anion Gap 13.0 (7-13) mEq/L BUN 11 (7-18) mg/dL Creatinine 0.71 (0.55-1.02) mg/dL Est Cr Clr Drug Dosing 84.59 mL/min Estimated GFR (MDRD) > 60 BUN/Creatinine Ratio 15.5 (No establ ref range) Glucose 100 H (74-99) mg/dL Calcium 8.6 (8.5-10.1) mg/dL Total Bilirubin 0.3 (0.2-1.0) mg/dL AST 8 L (15-37) U/L ALT 16 (14-59) U/L Alkaline Phosphatase 98 (46-116) U/L Total Protein 6.8 (6.4-8.2) g/dL Albumin 3.4 (3.4-5.0) g/dL Globulin 3.4 Albumin/Globulin Ratio 1.0 Meds: Medications Discontinued Medications Generic Name Dose Route Start Last Admin Trade Name Freq PRN Reason Stop Dose Admin Ibuprofen 600 mg 01/13/20 17:03 01/13/20 17:03 Motrin PO 01/13/20 17:04 600 mg ONETIME ONE Administration - Radiology Interpretation Free Text/Narrative:: Right shoulder xray: FINDINGS: Bones/joints: Glenohumeral joint space is not well profiled. No acute fracture. Acromioclavicular joint is unremarkable. Soft tissues: Unremarkable. IMPRESSION: No acute findings. Thank you for allowing us to participate in the care of your patient. Dictated and Authenticated by: Julianna Bowie MD 01/13/2020 4:26 PM Central Time ([place] & [place]) Right forearm xray: FINDINGS: Bones/joints: Well corticated 3 mm ossific density distal to the ulnar styloid process. Soft tissues: Unremarkable. 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 However, this could less likely represent an acute mildly displaced fracture of the ulnar styloid. Correlation with point tenderness may be helpful. Thank you for allowing us to participate in the care of your patient. Dictated and Authenticated by: Julianna Bowie MD 01/13/2020 4:23 PM Central Time ([place] & [place]) See rad report Departure - Departure Time of Disposition: 17:04 Disposition: Home, Self-Care 01 Condition: Fair Clinical Impression: Bruise Right shoulder pain Qualifiers: Chronicity: acute Qualified Code(s): M25.511 - Pain in right shoulder - Discharge Information *PRESCRIPTION DRUG MONITORING PROGRAM REVIEWED*: No *COPY OF PRESCRIPTION DRUG MONITORING REPORT IN PATIENT FELY: No Instructions: How to Use Cold Therapy, [id number], Shoulder Pain, Easy-to- Read, Heat Therapy, [id number], Joint Pain, [id number] Referrals: PCP,None [Primary Care Provider] - Forms: ED Department Discharge Additional Instructions: May use Tylenol and/or Ibuprofen as directed for pain Follow up with your primary care facility regarding shoulder pain May alternate heat and ice to the area as tolerated Sepsis Event Note - Evaluation Sepsis Screening Result: No Definite Risk - Focused Exam Date Exam was Performed: 01/14/20 Time Exam was Performed: 09:12
[2020-01-13 16:38] LABS: CHLORIDE,CL 103 mmol/L (98-107); SODIUM,NA 138 mmol/L (136-145)
[2020-01-13] MEDS ORDERED: Ibuprofen 600 MG Tab PO ONE (17:03)
== END 2020-01-13 17:31 | disposition home or self-care (01) ==
LOC: DL.ED 14:33
DX: S50.11XA Contusion of right forearm, initial encounter (principal); M25.511 Pain in right shoulder; E78.00 Pure hypercholesterolemia, unspecified; I10 Essential (primary) hypertension; J45.909 Unspecified asthma, uncomplicated; E10.9 Type 1 diabetes mellitus without complications; R56.9 Unspecified convulsions; E66.9 Obesity, unspecified; Z79.82 Long term (current) use of aspirin; Z79.899 Other long term (current) drug therapy; Z68.31 Body mass index [BMI] 31.0-31.9, adult; Z88.0 Allergy status to penicillin; Z88.6 Allergy status to analgesic agent; X58.XXXA Exposure to other specified factors, initial encounter
CPT/HCPCS: 36415; 73030; 73090; 80053; 85025; 99283; A9270

== ENCOUNTER 2020-03-04 20:28 | Emergency (ER) | payer MEDICAID ==
--- NOTE | 2020-03-04 21:06 | CR ---
PROCEDURE INFORMATION: Exam: XR Left Hand Exam date and time: 03/04/2020 8:53 PM Age: 49 years old Clinical indication: Other: Fall; Additional info: Pain TECHNIQUE: Imaging protocol: XR Left hand. Views: 1 or 2 views. COMPARISON: No relevant prior studies available. FINDINGS: Bones/joints: There is no evidence of acute fracture. Fifth finger: The proximal interphalangeal joint is held in extension, the distal interphalangeal joint in flexion. Acute subluxation/dislocation, particularly at the proximal interphalangeal joint, cannot be ruled out.. However these findings may well reflect chronic ligamentous abnormality. Correlate with physical findings and clinical history. Patients rings obscure detail of the proximal phalanges of the 3rd and 4th fingers. Soft tissues: Normal. IMPRESSION: 1. Fifth finger: The proximal interphalangeal joint is held in extension, the distal interphalangeal joint in flexion. Acute subluxation/dislocation, particularly at the proximal interphalangeal joint, cannot be ruled out. However these findings may well reflect chronic ligamentous abnormality. Correlate with physical findings and clinical history. 2. There is no evidence of acute fracture.
[2020-03-04] MEDS ORDERED: Acetaminophen 325 MG Tab PO ONE (21:09)
--- NOTE | 2020-03-04 22:27 | EDM.PDOC ---
ED HPI GENERAL MEDICAL PROBLEM - General Chief Complaint: Upper Extremity Injury/Pain Stated Complaint: LEFT HAND BROKEN PINKY PER PT Time Seen by Provider: 03/04/20 21:30 Source of Information: Reports: Patient History Limitations: Reports: No Limitations - History of Present Illness INITIAL COMMENTS - FREE TEXT/NARRATIVE: states fell, overs no more info, deformity 5th finger MIP, Swollen 4th, reports attempting to remove ring and couldnt. Left Hand Pain Score (Numeric/FACES): 10 - Related Data Allergies Allergy/AdvReac Type Severity Reaction Status Date / Time ketorolac [From Toradol] Allergy Cannot Verified 03/04/20 21:13 Remember Penicillins Allergy Cannot Verified 03/04/20 21:13 Remember Home Meds: Home Meds Lisinopril [Prinivil] 20 mg PO DAILY 09/12/17 [History] Mirtazapine 60 mg PO BEDTIME 09/12/17 [History] Prazosin HCl [Prazosin] 5 mg PO BEDTIME 09/12/17 [History] Cholecalciferol (Vitamin D3) [Vitamin D3] 1,000 unit PO DAILY 03/26/18 [History] Multivitamin [Multivitamins] 1 cap PO DAILY 03/26/18 [History] Albuterol [Ventolin HFA] 2 puff INH Q4HRRT PRN 05/13/18 [History] Aspirin [Lilia Chewable Aspirin] 81 mg PO DAILY 05/13/18 [History] Gabapentin [Neurontin] 1,200 mg PO TID 05/13/18 [History] Omeprazole 20 mg PO DAILY 05/13/18 [History] Pravastatin [Pravachol] 40 mg PO DAILY 05/13/18 [History] Acetaminophen [Tylenol] 650 mg PO Q6H PRN 5 Days #20 tablet 05/16/18 [Rx] Divalproex Sodium [Depakote] 1,500 mg PO DAILY 09/21/19 [History] Past Medical History HEENT History: Reports: Cataract, Impaired Vision, Other (See Below) Other HEENT History: bilateral cataracts Cardiovascular History: Reports: High Cholesterol, Hypertension, Other (See Below) Other Cardiovascular History: two mild heart attacks in the past Respiratory History: Reports: Asthma, Pneumonia, Recurrent, Other (See Below) Other Respiratory History: pleursy in 2013, 2016 Gastrointestinal History: Reports: None Genitourinary History: Reports: UTI, Recurrent 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 , Musculoskeletal History: Reports: Other (See Below) Other Musculoskeletal History: chronic left shoulder pain, torn rotator cuff Neurological History: Reports: Seizure, Other (See Below) Other Neuro History: hx traumatic brain injury Psychiatric History: Reports: Anxiety, Depression, PTSD Endocrine/Metabolic History: Reports: Diabetes, Type I, Obesity/BMI 30+, Other ( See Below) Other Endocrine/Metabolic History: metformin started Hematologic History: Reports: Other (See Below) Other Hematologic History: heradity spherocytosis Immunologic History: Reports: None Oncologic (Cancer) History: Reports: None Dermatologic History: Reports: None - Infectious Disease History Infectious Disease History: Reports: Chicken Pox, MRSA - Past Surgical History Head Surgeries/Procedures: Reports: None Respiratory Surgical History: Reports: None GI Surgical History: Reports: Cholecystectomy, Other (See Below) Other GI Surgeries/Procedures: spleen, gallbladder removed Female Surgical History: Reports: Section Musculoskeletal Surgical History: Reports: Knee Replacement, Shoulder Surgery Other Musculoskeletal Surgeries/Procedures:: 2 right shoulder, 1 left should, 6 or 7 left knee Social & Family History - Family History Family Medical History: Noncontributory - Tobacco Use Smoking Status *Q: Current Every Day Smoker Years of Tobacco use: 30 Packs/Tins Daily: 0.5 Second Hand Smoke Exposure: Yes - Caffeine Use Caffeine Use: Reports: Coffee - Recreational Drug Use Recreational Drug Use: Yes Drug Use in Last 12 Months: Yes Recreational Drug Type: Reports: Marijuana/Hashish - Living Situation & Occupation Living situation: Reports: with Family Review of Systems - Review of Systems Review Of Systems: Unable To Obtain Reason Not Obtained: appears under influence, offers little information freely ED EXAM, GENERAL - Physical Exam Exam: See Below Exam Limited By: Other General Appearance: Alert, Anxious, Mild Distress Eye Exam: Bilateral Eye: EOMI, PERRL (5) Ears: Normal External Exam, Hearing Grossly Normal Nose: Normal Inspection Throat/Mouth: Normal Voice Head: Atraumatic, Normocephalic Neck: Normal Inspection Respiratory/Chest: No Respiratory Distress Cardiovascular: Normal Peripheral Pulses Extremities: Limited Range of Motion, Other (mild swelling ring finger, ring cut off and given to patient, left fifth, PIP dislocation, mild swelling hand) ED TRAUMA EXTREMITY PROCEDURES - Joint Reduction Left Fingers Pre-Procedure NV Status: Normal Post-Procedure NV Status: Normal Technique: Traction/Counter Traction Number of Attempts: 1 Post-Reduction Imaging: Completely Reduced, No Fracture Seen Joint Reduction Complications: No - Splinting Left 5th Digit Pre-Procedure NV Status: Normal Post-Procedure NV Status: Normal Splint Material: Metal Splint Design: Extensor Applied & Form Fitted By: Nurse Provider Post-Splint Application NV Check: NV Status Normal, Good Position Course - Vital Signs Last Recorded V/S: Last Vital Signs Temp 97.7 F 03/04/20 21:08 Pulse 94 03/04/20 21:08 Resp 18 03/04/20 21:08 BP 167/107 H 03/04/20 21:08 Pulse Ox 100 03/04/20 21:08 - Orders/Labs/Meds Meds: Medications Discontinued Medications Generic Name Dose Route Start Last Admin Trade Name Daniel PRN Reason Stop Dose Admin Acetaminophen 650 mg 03/04/20 21:09 03/04/20 21:20 Tylenol PO 03/04/20 21:10 650 mg NOW ONE Administration Departure - Departure Time of Disposition: 22:26 Disposition: Home, Self-Care 01 Condition: Good Clinical Impression: Left hand pain Fall Qualifiers: Encounter type: initial encounter Qualified Code(s): W19.XXXA - Unspecified fall, initial encounter Dislocation, finger closed Qualifiers: Encounter type: initial encounter Qualified Code(s): S63.259A - Unspecified dislocation of unspecified finger, initial encounter - Discharge Information *PRESCRIPTION DRUG MONITORING PROGRAM REVIEWED*: No *COPY OF PRESCRIPTION DRUG MONITORING REPORT IN PATIENT FELY: No Instructions: Finger or Thumb Dislocation, [id number] Referrals: PCP,None [Primary Care Provider] - Forms: ED Department Discharge Additional Instructions: ice elevate finger splint tylenol 650mg every 4 hours as needed for discomfort Sepsis Event Note (ED) - Evaluation Sepsis Screening Result: No Definite Risk
--- NOTE | 2020-03-04 22:55 | CR ---
PROCEDURE INFORMATION: Exam: XR Left Finger(s) Exam date and time: 03/04/2020 10:30 PM Age: 49 years old Clinical indication: Other: Posredction; Additional info: Post reduction TECHNIQUE: Imaging protocol: XR Left fingers. Views: Minimum 2 views. COMPARISON: CR Hand 2V Lt 03/04/2020 8:53 PM FINDINGS: Bones/joints: The proximal interphalangeal joint dislocation suspect in the 5th finger on the prior study appears to been reduced. There is no evidence of acute fracture. Soft tissues: Normal. IMPRESSION: The proximal interphalangeal joint dislocation suspected in the 5th finger on the prior study appears to have been successfully reduced.
== END 2020-03-04 22:59 | disposition home or self-care (01) ==
LOC: DL.ED 20:28
DX: S63.287A Dislocation of proximal interphalangeal joint of left little finger, initial encounter (principal); I10 Essential (primary) hypertension; E78.00 Pure hypercholesterolemia, unspecified; F41.9 Anxiety disorder, unspecified; F32.9 Major depressive disorder, single episode, unspecified; E10.9 Type 1 diabetes mellitus without complications; E66.9 Obesity, unspecified; F17.210 Nicotine dependence, cigarettes, uncomplicated; Z68.32 Body mass index [BMI] 32.0-32.9, adult; Z88.0 Allergy status to penicillin; Z88.6 Allergy status to analgesic agent; Z79.82 Long term (current) use of aspirin; Z79.899 Other long term (current) drug therapy; Z87.440 Personal history of urinary (tract) infections; W19.XXXA Unspecified fall, initial encounter
CPT/HCPCS: 26770; 28660; 73120-LT; 73140-F4; 99283-25; A9270-GY

== ENCOUNTER 2020-03-16 03:44 | Emergency (ER) | payer MEDICAID ==
[2020-03-16] MEDS ORDERED: Acetaminophen/HYDROcodone 325-10 MG Tab PO ONE (04:01)
--- NOTE | 2020-03-16 04:07 | EDM.PDOC ---
ED HPI GENERAL MEDICAL PROBLEM - General Chief Complaint: Upper Extremity Injury/Pain Stated Complaint: TEAR IN RIGHT SHOULDER Time Seen by Provider: 03/16/20 03:55 Source of Information: Reports: Patient History Limitations: Reports: No Limitations - History of Present Illness INITIAL COMMENTS - FREE TEXT/NARRATIVE: This 49 yo female patient reports to the ED with right shoulder pain. The patient reports she started to have pain over 1 year ago, but it has gotten worse. The patient reports she was attempting to sleep when she started to have increased pain in her shoulder. The patient reports she took 2 Tylenol at 2200 last night, but continued to have pain. The patient denies any recent injury. 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 PHYSICIAN: Reports: Acetaminophen Right Shoulder Pain Score (Numeric/FACES): 10 - Related Data Allergies Allergy/AdvReac Type Severity Reaction Status Date / Time ketorolac [From Toradol] Allergy Cannot Verified 03/16/20 03:51 Remember Penicillins Allergy Cannot Verified 03/16/20 03:51 Remember Home Meds: Home Meds Lisinopril [Prinivil] 20 mg PO DAILY 09/12/17 [History] Mirtazapine 60 mg PO BEDTIME 09/12/17 [History] Prazosin HCl [Prazosin] 5 mg PO BEDTIME 09/12/17 [History] Cholecalciferol (Vitamin D3) [Vitamin D3] 1,000 unit PO DAILY 03/26/18 [History] Multivitamin [Multivitamins] 1 cap PO DAILY 03/26/18 [History] Albuterol [Ventolin HFA] 2 puff INH Q4HRRT PRN 05/13/18 [History] Aspirin [Lilia Chewable Aspirin] 81 mg PO DAILY 05/13/18 [History] Gabapentin [Neurontin] 1,200 mg PO TID 05/13/18 [History] Omeprazole 20 mg PO DAILY 05/13/18 [History] Pravastatin [Pravachol] 40 mg PO DAILY 05/13/18 [History] Acetaminophen [Tylenol] 650 mg PO Q6H PRN 5 Days #20 tablet 05/16/18 [Rx] Divalproex Sodium [Depakote] 1,500 mg PO DAILY 09/21/19 [History] Past Medical History HEENT History: Reports: Cataract, Impaired Vision, Other (See Below) Other HEENT History: bilateral cataracts Cardiovascular History: Reports: High Cholesterol, Hypertension, Other (See Below) Other Cardiovascular History: two mild heart attacks in the past Respiratory History: Reports: Asthma, Pneumonia, Recurrent, Other (See Below) Other Respiratory History: pleursy in 2013, 2016 Gastrointestinal History: Reports: None Genitourinary History: Reports: UTI, Recurrent 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 , Musculoskeletal History: Reports: Other (See Below) Other Musculoskeletal History: chronic left shoulder pain, torn rotator cuff Neurological History: Reports: Seizure, Other (See Below) Other Neuro History: hx traumatic brain injury Psychiatric History: Reports: Anxiety, Depression, PTSD Endocrine/Metabolic History: Reports: Diabetes, Type I, Obesity/BMI 30+, Other (See Below) Other Endocrine/Metabolic History: metformin started Hematologic History: Reports: Other (See Below) Other Hematologic History: heradity spherocytosis Immunologic History: Reports: None Oncologic (Cancer) History: Reports: None Dermatologic History: Reports: None - Infectious Disease History Infectious Disease History: Reports: Chicken Pox, MRSA - Past Surgical History Head Surgeries/Procedures: Reports: None Respiratory Surgical History: Reports: None GI Surgical History: Reports: Cholecystectomy, Other (See Below) Other GI Surgeries/Procedures: spleen, gallbladder removed Female Surgical History: Reports: Section Musculoskeletal Surgical History: Reports: Knee Replacement, Shoulder Surgery Other Musculoskeletal Surgeries/Procedures:: 2 right shoulder, 1 left should, 6 or 7 left knee Social & Family History - Family History Family Medical History: Noncontributory - Tobacco Use Smoking Status *Q: Current Every Day Smoker Years of Tobacco use: 30 Packs/Tins Daily: 0.5 Second Hand Smoke Exposure: Yes - Caffeine Use Caffeine Use: Reports: Coffee - Recreational Drug Use Recreational Drug Use: Yes Drug Use in Last 12 Months: Yes Recreational Drug Type: Reports: Marijuana/Hashish - Living Situation & Occupation Living situation: Reports: with Family Review of Systems - Review of Systems Review Of Systems: Comprehensive ROS is negative, except as noted in HPI. ED EXAM, GENERAL - Physical Exam Exam: See Below Exam Limited By: No Limitations General Appearance: Alert, WD/WN, Moderate Distress, Obese Eye Exam: Bilateral Eye: EOMI, Normal Inspection, PERRL Ears: Normal External Exam, Normal Canal, Hearing Grossly Normal, Normal TMs Nose: Normal Inspection, Normal Mucosa, No Blood Throat/Mouth: Normal Inspection, Normal Lips, Normal Teeth, Normal Gums, Normal Oropharynx, Normal Voice, No Airway Compromise Head: Atraumatic, Normocephalic Neck: Normal Inspection, Supple, Non-Tender, Full Range of Motion Respiratory/Chest: No Respiratory Distress, Lungs Clear, Normal Breath Sounds, No Accessory Muscle Use, Chest Non-Tender Cardiovascular: Normal Peripheral Pulses, Regular Rate, Rhythm, No Edema, No Gallop, No JVD, No Murmur, No Rub GI/Abdominal: Normal Bowel Sounds, Soft, Non-Tender, No Organomegaly, No Distention, No Abnormal Bruit, No Mass (Female) Exam: Deferred Rectal (Female) Exam: Deferred Back Exam: Normal Inspection, Full Range of Motion, NT Extremities: Arm Pain (Right anterior shoulder pain with movement), Limited Range of Motion (due to pain in her right shoulder) Neurological: Alert, Oriented, CN II-XII Intact, Normal Cognition, Normal Gait Psychiatric: Normal Affect, Normal Mood Skin Exam: Warm, Dry, Intact, Normal Color, No Rash Lymphatic: No Adenopathy Course - Vital Signs Last Recorded V/S: Last Vital Signs Temp 35.8 C L 03/16/20 03:47 Pulse 103 H 03/16/20 03:47 Resp 18 03/16/20 03:47 BP 168/96 H 03/16/20 03:47 Pulse Ox 98 03/16/20 03:47 - Orders/Labs/Meds Orders: Active Orders 24 hr Category Date Time Status Acetaminophen/HYDROcodone [[place] 325-10 MG] Med 03/16/20 04:01 Once 1 tab PO ONETIME ONE DME for Discharge [COMM] Urgent Oth 03/16/20 03:59 Ordered Departure - Departure Time of Disposition: 04:08 Disposition: Home, Self-Care 01 Condition: Fair Clinical Impression: Chronic right shoulder pain - Discharge Information *PRESCRIPTION DRUG MONITORING PROGRAM REVIEWED*: No (The prescription drug monitoring program was "unavailable" at the time of visit.) *COPY OF PRESCRIPTION DRUG MONITORING REPORT IN PATIENT FELY: Not Applicable Care Plan Goals: The patient was advised of the examination results during the visit. The patient was placed in a right shoulder immobilizer and given an oral dose of [place] (10/325) while in the ED. The patient was advised to follow-up with her primary care facility for continued evaluation and further management. The patient was advised to wear the shoulder immobilizer to stabilize her shoulder. If the patient has any additional symptoms or concerns, the patient should either return to the emergency department or visit her primary care facility. Sepsis Event Note (ED) - Evaluation Sepsis Screening Result: No Definite Risk - Focused Exam Vital Signs: Vital Signs Temp Pulse Resp BP Pulse Ox 03/16/20 03:47 35.8 C L 103 H 18 168/96 H 98 - My Orders Last 24 Hours: My Active Orders 03/16/20 03:59 DME for Discharge [COMM] Urgent 03/16/20 04:01 Acetaminophen/HYDROcodone [[place] 325-10 MG] 1 tab PO ONETIME ONE - Assessment/Plan Last 24 Hours: My Active Orders 03/16/20 03:59 DME for Discharge [COMM] Urgent 03/16/20 04:01 Acetaminophen/HYDROcodone [[place] 325-10 MG] 1 tab PO ONETIME ONE
== END 2020-03-16 04:15 | disposition home or self-care (01) ==
LOC: DL.ED 03:44
DX: G89.29 Other chronic pain (principal); M25.511 Pain in right shoulder; E78.00 Pure hypercholesterolemia, unspecified; I10 Essential (primary) hypertension; J45.909 Unspecified asthma, uncomplicated; R56.9 Unspecified convulsions; E10.9 Type 1 diabetes mellitus without complications; E66.9 Obesity, unspecified; Z68.32 Body mass index [BMI] 32.0-32.9, adult; F17.210 Nicotine dependence, cigarettes, uncomplicated; Z79.82 Long term (current) use of aspirin; Z88.6 Allergy status to analgesic agent; Z88.0 Allergy status to penicillin; Z79.899 Other long term (current) drug therapy; Z79.84 Long term (current) use of oral hypoglycemic drugs
CPT/HCPCS: 99283; A9270

== ENCOUNTER 2020-03-18 23:01 | Emergency (ER) | payer MEDICAID ==
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
[2020-03-18] MEDS ORDERED: Cephalexin 500 MG Cap PO ONE (23:46)
[2020-03-18] MEDS ORDERED: Ibuprofen 600 MG Tab PO ONE (23:47)
[2020-03-18] MEDS ORDERED: Bacitracin Oint 1 GM U/D Packet TOP ONE (23:48)
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
== END 2020-03-19 00:40 | disposition home or self-care (01) ==
LOC: DL.ED 23:01
DX: S46.912A Strain of unspecified muscle, fascia and tendon at shoulder and upper arm level, left arm, initial encounter (principal); S81.802A Unspecified open wound, left lower leg, initial encounter; L08.9 Local infection of the skin and subcutaneous tissue, unspecified; E78.00 Pure hypercholesterolemia, unspecified; I10 Essential (primary) hypertension; J45.909 Unspecified asthma, uncomplicated; R56.9 Unspecified convulsions; F17.210 Nicotine dependence, cigarettes, uncomplicated; E10.9 Type 1 diabetes mellitus without complications; E66.9 Obesity, unspecified; Z88.6 Allergy status to analgesic agent; Z88.0 Allergy status to penicillin; Z79.899 Other long term (current) drug therapy; Z68.29 Body mass index [BMI] 29.0-29.9, adult; V18.4XXA Pedal cycle driver injured in noncollision transport accident in traffic accident, initial encounter
CPT/HCPCS: 73030; 99283; A9270

== ENCOUNTER 2020-03-26 21:43 | Emergency (ER) | payer MEDICAID ==
[2020-03-26] MEDS ORDERED: Doxycycline 100 MG Cap PO ONE (23:15)
[2020-03-26] MEDS ORDERED: Bacitracin Oint 1 GM U/D Packet TOP ONE (23:16)
--- NOTE | 2020-03-26 23:50 | EDM.PDOC ---
ED HPI GENERAL MEDICAL PROBLEM - General Chief Complaint: Skin Complaint Time Seen by Provider: 03/26/20 23:15 Source of Information: Reports: Patient History Limitations: Reports: Uncooperative - History of Present Illness INITIAL COMMENTS - FREE TEXT/NARRATIVE: ED with c/o pain redness to wound left leg, scratched on bike pedal one week ago, Seen in ED and given keflex. Reports increased redness pain though sleeping soundly at time of exam. Remote hx skin infection. Chills no known fever. Left Lower Leg Pain Score (Numeric/FACES): 8 - Related Data Allergies Allergy/AdvReac Type Severity Reaction Status Date / Time ketorolac [From Toradol] Allergy Hives Verified 03/26/20 21:48 Penicillins Allergy Hives Verified 03/26/20 21:48 Home Meds: Home Meds Lisinopril [Prinivil] 20 mg PO DAILY 09/12/17 [History] Mirtazapine 60 mg PO BEDTIME 09/12/17 [History] Prazosin HCl [Prazosin] 5 mg PO BEDTIME 09/12/17 [History] Cholecalciferol (Vitamin D3) [Vitamin D3] 1,000 unit PO DAILY 03/26/18 [History] Multivitamin [Multivitamins] 1 cap PO DAILY 03/26/18 [History] Albuterol [Ventolin HFA] 2 puff INH Q4HRRT PRN 05/13/18 [History] Gabapentin [Neurontin] 1,200 mg PO TID 05/13/18 [History] Omeprazole 20 mg PO DAILY 05/13/18 [History] Pravastatin [Pravachol] 40 mg PO DAILY 05/13/18 [History] Acetaminophen [Tylenol] 650 mg PO Q6H PRN 5 Days #20 tablet 05/16/18 [Rx] Past Medical History HEENT History: Reports: Cataract, Impaired Vision, Other (See Below) Other HEENT History: bilateral cataracts Cardiovascular History: Reports: High Cholesterol, Hypertension, Other (See Below) Other Cardiovascular History: two mild heart attacks in the past Respiratory History: Reports: Asthma, Pneumonia, Recurrent, Other (See Below) Other Respiratory History: pleursy in 2013, 2017 Gastrointestinal History: Reports: None Genitourinary History: Reports: UTI, Recurrent [employer] History: Reports: Ectopic , Musculoskeletal History: Reports: Other (See Below) Other Musculoskeletal History: chronic left shoulder pain, torn rotator cuff bilat with suregery to repair Neurological History: Reports: Seizure, Other (See Below) Other Neuro History: hx traumatic brain injury Psychiatric History: Reports: Anxiety, Depression, PTSD Endocrine/Metabolic History: Reports: Diabetes, Type I, Obesity/BMI 30+, Other (See Below) Other Endocrine/Metabolic History: metformin started Hematologic History: Reports: Other (See Below) Other Hematologic History: heradity spherocytosis Immunologic History: Reports: None Oncologic (Cancer) History: Reports: None Dermatologic History: Reports: None - Infectious Disease History Infectious Disease History: Reports: Chicken Pox, MRSA - Past Surgical History Head Surgeries/Procedures: Reports: None Respiratory Surgical History: Reports: None GI Surgical History: Reports: Appendectomy, Cholecystectomy, Other (See Below) Other GI Surgeries/Procedures: spleenectomy Female Surgical History: Reports: Section Musculoskeletal Surgical History: Reports: Knee Replacement, Shoulder Surgery Other Musculoskeletal Surgeries/Procedures:: 2 right shoulder, 1 left should, 6 or 7 left knee Social & Family History - Family History Family Medical History: Noncontributory - Tobacco Use Smoking Status *Q: Heavy Tobacco Smoker Years of Tobacco use: 30 Packs/Tins Daily: 0.5 - Caffeine Use Caffeine Use: Reports: Coffee, Soda - Recreational Drug Use Recreational Drug Use: No - Living Situation & Occupation Living situation: Reports: with Family ED ROS GENERAL - Review of Systems Review Of Systems: Comprehensive ROS is negative, except as noted in HPI. ED EXAM, SKIN/RASH Exam: See Below Exam Limited By: No Limitations General Appearance: Other (drowsy) Ears: Normal External Exam, Hearing Grossly Normal Nose: Normal Inspection Throat/Mouth: Normal Voice Head: Atraumatic, Normocephalic Neck: Normal Inspection Respiratory/Chest: No Respiratory Distress, Normal Breath Sounds Cardiovascular: Normal Peripheral Pulses, Regular Rate, Rhythm Extremities: Increased Warmth, Redness (left lower lateral leg irredular wound 1.5x1.5 surrounding redness and warmth wound bed dry scant yellow center outer wound dark chacon. ) Neurological: Oriented, Slow to Respond Psychiatric: Flat Affect Skin: Erythema, Wound/Incision Location, Skin: Lower Extremity, Left Associated features: Warmth, Tenderness, Swelling (mild), Inflammation, Crustin g. No: Weeping Course - Vital Signs Last Recorded V/S: Last Vital Signs Temp 97.7 F 03/26/20 21:48 Pulse 95 03/26/20 21:48 Resp 16 03/26/20 21:48 BP 141/85 H 03/26/20 21:48 Pulse Ox 99 03/26/20 21:48 - Orders/Labs/Meds Orders: Active Orders 24 hr Category Date Time Status Blood Glucose Check, Bedside [RC] ONETIME Care 03/26/20 23:12 Active CULTURE WOUND + SMEAR [RM] Stat Lab 03/26/20 21:54 Results Labs: Laboratory Tests 03/26/20 Range/Units 23:20 WBC 11.1 H (5.0-10.0) 10^3/uL RBC 4.77 (4.2-5.4) 10^6/uL Hgb 12.8 (12.0-16.0) g/dL Hct 38.0 (37.0-47.0) % MCV 79.7 L (80-100) fL MCH 26.8 L (27.0-34.0) pg MCHC 33.7 (33.0-35.0) g/dL Plt Count 421 (150-450) 10^3/uL Neut % (Auto) 56.1 (42.2-75.2) % Lymph % (Auto) 28.6 (20.5-50.1) % [place] % (Auto) 9.4 H (2-8) % Eos % (Auto) 5.5 H (1.0-3.0) % Baso % (Auto) 0.4 (0.0-1.0) % Meds: Medications Discontinued Medications Generic Name Dose Route Start Last Admin Trade Name Freq PRN Reason Stop Dose Admin Bacitracin 1 dose 03/26/20 23:16 03/26/20 23:53 Bacitracin Oint 1 Gm TOP 03/26/20 23:17 1 dose ONETIME ONE Administration Doxycycline Hyclate 100 mg 03/26/20 23:15 03/26/20 23:53 Vibramycin PO 03/26/20 23:16 100 mg ONETIME ONE Administration Departure - Departure Time of Disposition: 23:48 Disposition: Home, Self-Care 01 Condition: Good Clinical Impression: Wound infection - Discharge Information *PRESCRIPTION DRUG MONITORING PROGRAM REVIEWED*: No *COPY OF PRESCRIPTION DRUG MONITORING REPORT IN PATIENT FELY: No Instructions: Cellulitis, Adult Referrals: PCP,None [Primary Care Provider] - Forms: ED Department Discharge Additional Instructions: doxycycline 100mg one twice daily for 10 days clinic recheck this week warm compress to area 3 times daily cover wound with antibiotic ointment during day and open to air at bed monitor redness and swelling, follow up if worsening Sepsis Event Note (ED) - Evaluation Sepsis Screening Result: No Definite Risk - Focused Exam Vital Signs: Vital Signs Temp Pulse Resp BP Pulse Ox 03/26/20 21:48 97.7 F 95 16 141/85 H 99 - My Orders Last 24 Hours: My Active Orders 03/26/20 21:54 CULTURE WOUND + SMEAR [RM] Stat 03/26/20 23:12 Blood Glucose Check, Bedside [RC] ONETIME - Assessment/Plan Last 24 Hours: My Active Orders 03/26/20 21:54 CULTURE WOUND + SMEAR [RM] Stat 03/26/20 23:12 Blood Glucose Check, Bedside [RC] ONETIME
== END 2020-03-27 00:02 | disposition home or self-care (01) ==
LOC: DL.ED 21:43
DX: L08.9 Local infection of the skin and subcutaneous tissue, unspecified (principal); I10 Essential (primary) hypertension; E78.00 Pure hypercholesterolemia, unspecified; R56.9 Unspecified convulsions; E10.9 Type 1 diabetes mellitus without complications; F32.9 Major depressive disorder, single episode, unspecified; F41.9 Anxiety disorder, unspecified; E66.9 Obesity, unspecified; F17.210 Nicotine dependence, cigarettes, uncomplicated; Z88.5 Allergy status to narcotic agent; Z88.0 Allergy status to penicillin; Z79.899 Other long term (current) drug therapy
CPT/HCPCS: 36415; 82962; 85025; 87070; 87077; 87186; 87205; 99283; A9270